=== PATIENT | male | born 1960 | race Caucasian/White ===

== ENCOUNTER 2018-09-11 20:46 | Inpatient (IN) | payer BC ==
[2018-09-11 22:03] LABS: ABSOLUTE EOSINOPHILS # (AUTO) 0.1 10^3/uL (0.0-0.6); ABSOLUTE LYMPHOCYTES (AUTO) 0.8 10^3/uL (0.5-4.7); ABSOLUTE MONOCYTES (AUTO) 0.7 10^3/uL (0.1-1.4); ABSOLUTE NEUT (AUTO) 5.5 10^3/uL (1.7-8.2); BASOPHILS % (AUTO) 0.5 % (0-2); HEMATOCRIT 49.4 % (37.9-51.0); HEMOGLOBIN 16.4 g/dL (13.5-17.0); LYMPHOCYTES % (AUTO) 11.5 % (13-45); MEAN CORPUSCULAR HEMOGLOBIN 29.2 pg (27.0-33.4); MEAN CORPUSCULAR HGB CONC 33.2 g/dL (32.0-36.0); MEAN CORPUSCULAR VOLUME 88 fl (80-97); MONOCYTES % (AUTO) 9.9 % (3-13); PLATELET COUNT 154 10^3/uL (150-450); RED BLOOD COUNT 5.61 10^6/uL (4.35-5.55); RED CELL DISTRIBUTION WIDTH 19.9 % (11.5-14.0); SEGMENTED NEUTROPHILS % (AUTO) 77.1 % (42-78); TOTAL CELLS COUNTED % (AUTO) 100 %; WHITE BLOOD COUNT 7.1 10^3/uL (4.0-10.5)
[2018-09-11 22:18] LABS: VENOUS BLOOD BASE EXCESS 3.7 mmol/L; VENOUS BLOOD HCO3 28.3 mmol/L (20-32); VENOUS BLOOD PCO2 42.4 mmHg (35-63); VENOUS BLOOD PH 7.44 (7.30-7.42)
--- NOTE | 2018-09-11 22:18 | ER Document Report ---
ED General - General Chief Complaint: Chest Pain > 30 Stated Complaint: CHEST PAIN Time Seen by Provider: 09/11/18 22:02 Notes: Patient is a 57-year-old male with CHF, hypertension that presents to the emergency department for chief complaint of shortness of breath, chest discomfort. Patient reports that over the past few days he has been having tightness across his chest, leg swelling, and increased shortness of breath and orthopnea. He states he is having some nausea and vomiting as well. And states that his abdomen is been more swollen. He states that this typically happens when he is in a flare of his CHF. He is in town visiting from [place] to visit his daughter. He is on Lasix. He states he has had to wear the LifeVest in the past, but does not currently wear one. He also reports a history of COPD, and smokes cigarettes. He describes his pain at this time as a tightness in his chest, but it seems to be easing up at this time, but he is having pain in his legs bilaterally, because he states he has restless legs as well he describes the pain as a sharp pain, that is constant towards the ankles. He denies noting fevers, chills, night sweats, dysuria, hematuria. Past Medical History: CHF, hypertension Past Surgical History: Left heart catheterization Social History: Admits to smoking cigarettes, denies alcohol or drug use. Family History: Reviewed and noncontributory for presenting illness Allergies: Reviewed, see documented allergy list. REVIEW OF SYSTEMS: Other than noted above, the 12 point review of systems was reviewed with the patient and were negative, all pertinent findings are included in the HPI. PHYSICAL EXAMINATION: Vital signs reviewed, nursing noted reviewed. GENERAL: Patient appears older than stated age, and uncomfortable on exam HEAD: Atraumatic, normocephalic. EYES: Eyes appear normal, extraocular movements intact, sclera anicteric, conjunctiva are normal. ENT: nares patent, oropharynx clear without exudates. Moist mucous membranes. NECK: Normal range of motion, supple without lymphadenopathy, positive for JVD, even with the patient sitting nearly upright LUNGS: Mild increased work of breathing, diminished lung sounds generally, and there is expiratory wheezing noted throughout all lung hernandez as well. HEART: Heart rate tachycardic, regular rhythm ABDOMEN: Soft, mild distention, nontender, normoactive bowel sounds. No rebound, guarding, or rigidity. No masses appreciated. EXTREMITIES: Mild tenderness with palpation to the lower extremities particularly around the ankles, no gross deformity or injury patterns noted, good range of motion, 1+ pitting edema bilaterally in the lower extremities to the proximal tibia NEUROLOGICAL: No focal neurological deficits. Moves all extremities spontaneously Motor and sensory grossly intact on exam. PSYCH: Normal mood, normal affect. SKIN: Warm, Dry, normal turgor, no rashes or lesions noted on exposed skin - Related Data Allergies/Adverse Reactions: Penicillins Adverse Reaction (Verified 09/11/18 22:06) Hives Past Medical History - Social History Smoking Status: Current Every Day Smoker Chew tobacco use (# tins/day): No Frequency of alcohol use: None Drug Abuse: None Family History: Reviewed & Not Pertinent Patient has suicidal ideation: No Patient has homicidal ideation: No - Past Medical History Cardiac Medical History: Reports: Hx Congestive Heart Failure, Hx Hypertension Pulmonary Medical History: Reports: Hx COPD, Hx Pneumonia - may Renal/ Medical History: Denies: Hx Peritoneal Dialysis Physical Exam - Vital signs Vitals: Resp Pulse Ox 19 88 L 09/11/18 21:21 09/11/18 21:21 Course - Re-evaluation Re-evalutation: Patient seen and examined vital signs reviewed. Laboratory data and imaging were ordered as appropriate for the patient's presenting symptoms and complaint, with consideration of any critical or life threatening conditions that may be associated with their obtained history and exam as noted above. Patient was treated with supplemental oxygen, as he was found to be hypoxic, at rest on room air, which she typically does not wear oxygen. He was started on DuoNeb breathing treatment, IV corticosteroid, and given IV Lasix. He was also started on BiPAP, as the patient was having increased work of breathing, was hypoxic, and appeared to be fluid overloaded, as well as in a COPD exacerbation. Results were reviewed when available and demonstrated chest x-ray with cardiomegaly, no signs of pneumonia, no leukocytosis, his troponin was 0.03, BNP 4300 The patient was re-evaluated and was much improved on BiPAP, stating his breathing was much easier, his heart rate was coming down as well. Evaluation was most consistent with acute exacerbation of COPD, acute exacerbation of heart failure, and mild fluid overload Results were discussed with the patient at this point after careful consideration I feel that that patient should be admitted to the hospital. This was discussed with the patient that it is in the best interest for their care to be admitted for further evaluation and management. Patient agreed with this plan of care. A call was placed to the admitted physician, Dr. Saeed who graciously accepted the patient onto their service. *Note is created using voice recognition software and may contain spelling, syntax or grammatical errors. Laboratory 09/11/18 09/11/18 09/11/18 21:35 21:35 21:35 WBC 7.1 RBC 5.61 H Hgb 16.4 Hct 49.4 MCV 88 MCH 29.2 MCHC 33.2 RDW 19.9 H Plt Count 154 Seg Neutrophils % 77.1 Lymphocytes % 11.5 L Monocytes % 9.9 Eosinophils % 1.0 Basophils % 0.5 Absolute Neutrophils 5.5 Absolute Lymphocytes 0.8 Absolute Monocytes 0.7 Absolute Eosinophils 0.1 Absolute Basophils 0.0 VBG pH VBG pCO2 VBG HCO3 VBG Base Excess Sodium 138.5 Potassium 3.8 Chloride 102 Carbon Dioxide 28 Anion Gap 9 BUN 39 H Creatinine 1.05 Est GFR ( Amer) > 60 Est GFR (Non-Af Amer) > 60 Glucose 114 H Calcium 9.3 Total Bilirubin 2.3 H Direct Bilirubin 1.0 H Neonat Total Bilirubin Not Reportable Neonat Direct Bilirubin Not Reportable Neonat Indirect Bili Not Reportable AST 63 H ALT 34 Alkaline Phosphatase 174 H Creatine Kinase 159 CK-MB (CK-2) 4.51 Troponin I 0.034 NT-Pro-B Natriuret Pep Total Protein 7.2 Albumin 3.5 09/11/18 09/11/18 21:35 21:35 WBC RBC Hgb Hct MCV MCH MCHC RDW Plt Count Seg Neutrophils % Lymphocytes % Monocytes % Eosinophils % Basophils % Absolute Neutrophils Absolute Lymphocytes Absolute Monocytes Absolute Eosinophils Absolute Basophils VBG pH 7.44 H VBG pCO2 42.4 VBG HCO3 28.3 VBG Base Excess 3.7 Sodium Potassium Chloride Carbon Dioxide Anion Gap BUN Creatinine Est GFR ( Amer) Est GFR (Non-Af Amer) Glucose Calcium Total Bilirubin Direct Bilirubin Neonat Total Bilirubin Neonat Direct Bilirubin Neonat Indirect Bili AST ALT Alkaline Phosphatase Creatine Kinase CK-MB (CK-2) Troponin I NT-Pro-B Natriuret Pep 4310 H Total Protein Albumin Chest X-Ray 09/11/18 21:41 IMPRESSION: Cardiomegaly. Scarring left midlung copyright 2011 [employer]- All Rights Reserved - Vital Signs Vital signs: Temp Pulse Resp BP Pulse Ox 97.3 F 94 18 106/57 L 94 09/12/18 01:34 09/12/18 01:34 09/12/18 01:34 09/12/18 01:34 09/12/18 01:34 - Laboratory Result Diagrams: 09/11/18 21:35 09/11/18 21:35 Laboratory results interpreted by me: 09/11/18 09/11/18 09/11/18 21:35 21:35 21:35 RBC 5.61 H RDW 19.9 H Lymphocytes % 11.5 L VBG pH 7.44 H BUN 39 H Glucose 114 H Total Bilirubin 2.3 H Direct Bilirubin 1.0 H AST 63 H Alkaline Phosphatase 174 H NT-Pro-B Natriuret Pep 09/11/18 21:35 RBC RDW Lymphocytes % VBG pH BUN Glucose Total Bilirubin Direct Bilirubin AST Alkaline Phosphatase NT-Pro-B Natriuret Pep 4310 H - EKG Interpretation by Me Additional EKG results interpreted by me: EKG demonstrates mild sinus tachycardia with a ventricular rate of 101 bpm, presence of incomplete right bundle branch block, right axis deviation, QTC prolonged at 493 ms, T wave inversion in lead III and aVF, no ST elevation, Q waves in leads V2 and V3. No prior for comparison. Critical Care Note - Critical Care Note Total time excluding time spent on procedures (mins): 40 Comments: Critical care time 40 minutes exclusive from separate billable procedures for a patient requiring complex medical decision making, and high potential for clinical deterioration. Time spent obtaining history from patient or surrogate, discussions with consultants, development of treatment plan with patient or surrogate, evaluation of patient's response to treatment, examination of patient, ordering and performing treatments and interventions, ordering and review of laboratory studies, re-evaluation of patient's condition, ordering and review of radiographic studies and review of old charts Discharge - Discharge Clinical Impression: Acute exacerbation of chronic obstructive pulmonary disease (COPD) Acute exacerbation of CHF (congestive heart failure) Qualifiers: Heart failure type: unspecified Qualified Code(s): I50.9 - Heart failure, unspecified Acute and chronic respiratory failure Qualifiers: Respiratory failure complication: hypoxia Qualified Code(s): J96.21 - Acute and chronic respiratory failure with hypoxia Condition: Stable Disposition: ADMITTED INPATIENT Admitting Provider: Darlin (Hospitalist) Unit Admitted: [facility]
--- NOTE | 2018-09-11 22:23 | RADIOLOGY REPORT (SQ) ---
EXAM DESCRIPTION: XR CHEST 1 VIEW COMPLETED DATE/TME: 09/11/2018 21:41 CLINICAL HISTORY: 57 years, Male, possible chf exacerbation COMPARISON: None. NUMBER OF VIEWS: 1 TECHNIQUE: Portable chest LIMITATIONS: None. FINDINGS: Cardiomegaly. Osteopenia. Scarring in the left midlung. No pneumothorax IMPRESSION: Cardiomegaly. Scarring left midlung copyright 2010 [employer]- All Rights Reserved
[2018-09-11 22:30] LABS: CREATINE KINASE MB 4.51 ng/mL (<4.55)
[2018-09-11] MEDS ORDERED: FUROSEMIDE INJ/PF 40 MG/4 ML SDV IV ONE (22:32)
[2018-09-11] MEDS ORDERED: IPRATROPIUM/ALBUTEROL 0.5-2.5 MG/3 ML AMPUL NEB ONE (22:33)
[2018-09-11] MEDS ORDERED: METHYLPREDNISOLONE INJ 125 MG/2 ML SDV IV ONE (22:33)
[2018-09-11] MEDS ORDERED: FENTANYL CITRATE INJ/PF 100 MCG/2 ML AMPUL IV ONE (22:39)
[2018-09-11 22:40] LABS: TROPONIN I 0.034 ng/mL
[2018-09-11 22:50] LABS: ALANINE AMINOTRANSFERASE 34 U/L (21-72); ALBUMIN 3.5 g/dL (3.5-5.0); ALKALINE PHOSPHATASE 174 U/L (38-126); ANION GAP 9 (5-19); ASPARTATE AMINO TRANSFERASE 63 U/L (17-59); BILIRUBIN,TOTAL 2.3 mg/dL (0.2-1.3); BLOOD UREA NITROGEN 39 mg/dL (7-20); CALCIUM 9.3 mg/dL (8.4-10.2); CARBON DIOXIDE 28 mmol/L (22-30); CHLORIDE 102 mmol/L (98-107); CREATINE KINASE 159 U/L (55-170); GLUCOSE 114 mg/dL (75-110); POTASSIUM 3.8 mmol/L (3.6-5.0); SODIUM 138.5 mmol/L (137-145); TOTAL PROTEIN 7.2 g/dL (6.3-8.2)
[2018-09-12] MEDS ORDERED: MAGNESIUM HYDROXIDE SUSP 30 ML UDCUP PO PRN (00:45)
[2018-09-12] MEDS ORDERED: ONDANSETRON HCL INJ/PF 4 MG/2 ML SDV IV PRN (00:45)
[2018-09-12] MEDS ORDERED: ONDANSETRON 4 MG TAB.RAPDIS PO PRN (00:45)
[2018-09-12] MEDS ORDERED: NICOTINE 21 MG/24 HR PATCH.TD24 TD PRN (00:53)
[2018-09-12] MEDS ORDERED: ACETAMINOPHEN 325 MG TABLET PO PRN (00:53)
[2018-09-12] MEDS ORDERED: HYDRALAZINE HCL INJ/PF 20 MG/1 ML SDV IV PRN (00:53)
[2018-09-12] MEDS ORDERED: MORPHINE SULFATE 10 MG/ML INJ IV PRN ×5 (00:53→01:14)
[2018-09-12] MEDS ORDERED: LEVALBUTEROL HCL NEB 1.25 MG/3 ML AMPUL NEB ONE (01:30)
[2018-09-12] MEDS ORDERED: FAMOTIDINE 20 MG TABLET PO ONE (01:30)
[2018-09-12] MEDS ORDERED: IPRATROPIUM BROMIDE 0.02% NEB 0.5 MG/2.5 ML AMPUL NEB ONE (01:30)
--- NOTE | 2018-09-12 03:36 | PDOC H&P ---
History of Present Illness Admission Date/PCP: 09/11/18 23:39 No Local PCP Patient complains of: Dyspnea History of Present Illness: LOC SYED is a 57 year old male who presented to the emergency room with a 3-day history of progressively worsening dyspnea. He admits that for 3 days he has gradually become more short of breath to the point where it had become severe resulting in his presentation to the emergency room. He additionally admits that his dyspnea has been accompanied by gradually worsening orthopnea, exertion related episodic mild to moderate tightness in his anterior chest as well as constantly present and gradually worsening swelling of his bilateral lower extremities. He also reports related symptoms of mild to moderate nausea with vomiting. He admits to numerous prior similar episodes with flareups of his congestive heart failure and/or COPD. He continues to smoke cigarettes. He further admits that he has worn a LifeVest for treatment of his CHF in the past however he has moved from [place] where this was available to [place] to live with his daughter and he no longer has access to this treatment and has not developed a relationship with a primary care physician or [place] locally. He has not identified any other aggravating or ameliorating factors for his acute exacerbations of just of heart failure. In the emergency room he was found to have a significantly elevated BNP at greater than 4300 and was noted to have significant hypoxia requiring BiPAP to obtain adequate oxygenation levels. Because of his significant congestive heart failure history and his general condition is felt he should be admitted to the hospital for further evaluation and treatment. Past Medical History Cardiac Medical History: Reports: Congestive Heart Failure, Hypertension Denies: Atrial Fibrillation, DVT, Myocardial Infarction, Pulmonary Embolism Pulmonary Medical History: Reports: Chronic Obstructive Pulmonary Disease (COPD), Pneumonia - may, Respiratory Failure Denies: Asthma EENT Medical History: Denies: Cataracts, Eyes - Does not use corrective lenses Neurological Medical History: Denies: Hemorrhagic CVA, Ischemic CVA, Seizures Endocrine Medical History: Denies: Diabetes Mellitus Type 1, Diabetes Mellitus Type 2, Hyperthyroidism, Hypothyroidism, Obesity Renal/ Medical History: Denies: Chronic Kidney Disease, Nephrolithiasis Malignancy Medical History: Reports: None GI Medical History: Denies: Cirrhosis, Hepatitis Musculoskeltal Medical History: Reports: Other - Restless leg syndrome Denies: Arthritis, Gout Skin Medical History: Denies: Eczema, Psoriasis Psychiatric Medical History: Reports: Tobacco Dependency Denies: Alcohol Dependency, Substance Abuse Traumatic Medical History: Reports: None Hematology: Denies: Anemia, Bleeding Tendencies Infectious Medical History: Reports: None Past Surgical History Past Surgical History: Reports: Cardiac Catheterization Social History Information Source: Patient Lives with: Family Smoking Status: Current Every Day Smoker Frequency of Alcohol Use: None Hx Recreational Drug Use: No Drugs: None Hx Prescription Drug Abuse: No - Advance Directive Resuscitation Status: Full Code Surrogate healthcare decision maker:: Sarita Hernandez his daughter Family History Family History: CAD, Hypertension. denies: DM, Malignancy, Thyroid Disfunction Parental Family History Reviewed: Yes Children Family History Reviewed: No Sibling(s) Family History Reviewed.: Yes Medication/Allergy Allergies/Adverse Reactions: Penicillins Adverse Reaction (Verified 09/11/18 22:06) Hives Review of Systems Constitutional: ABSENT: chills, fever(s) Eyes: ABSENT: visual disturbances, other - Eye pain Ears: ABSENT: hearing changes, other - Ear pain Nose, Mouth, and Throat: ABSENT: mouth pain, sore throat Cardiovascular: PRESENT: as per HPI, chest pain, dyspnea on exertion, edema, orthropnea. ABSENT: palpitations Respiratory: PRESENT: dyspnea. ABSENT: cough Gastrointestinal: PRESENT: nausea, vomiting. ABSENT: abdominal pain, constipation, diarrhea Genitourinary: ABSENT: dysuria, hematuria Musculoskeletal: ABSENT: back pain, joint swelling, muscle weakness Integumentary: ABSENT: pruritus, rash Neurological: ABSENT: confusion, convulsions, focal weakness, memory loss, syncope Psychiatric: ABSENT: anxiety, depression Endocrine: ABSENT: cold intolerance, heat intolerance Hematologic/Lymphatic: ABSENT: easy bleeding, easy bruising Physical Exam Vital Signs: Temp Pulse Resp BP Pulse Ox 97.6 F 99 11 L 119/108 H 95 09/11/18 21:49 09/11/18 21:49 09/12/18 00:01 09/12/18 00:01 09/12/18 00:01 Intake & Output 09/10/18 09/11/18 09/12/18 23:59 23:59 23:59 Weight 58.4 kg General appearance: PRESENT: mild distress, other - On BiPAP, slightly uncooperative with exam due to his mild respiratory distress despite being on BiPAP Head exam: PRESENT: atraumatic, normocephalic Eye exam: ABSENT: conjunctival injection, nystagmus, scleral icterus Ear exam: PRESENT: normal external ear exam. ABSENT: bleeding, drainage Mouth exam: PRESENT: dry mucosa, neck supple Neck exam: PRESENT: JVD - Mild, Bilateral @ 30 degrees. ABSENT: thyromegaly, tracheal deviation Respiratory exam: PRESENT: decreased breath sounds - Mildly decreased breath sounds throughout all hernandez with more significant decrease in breath sounds at the bilateral bases, prolonged expiratory phas - Slightly prolonged expiratory phase throughout all hernandez, rales - Bibasilar rales, symmetrical, wheezes - Expiratory wheezes throughout all hernandez, other - On BiPAP Cardiovascular exam: PRESENT: gallop - S4 gallop rhythm present, RRR. ABSENT: clicks, rubs Pulses: PRESENT: normal radial pulses, normal dorsalis pedis pul Vascular exam: PRESENT: normal capillary refill. ABSENT: pallor GI/Abdominal exam: PRESENT: normal bowel sounds, soft Rectal exam: PRESENT: deferred Extremities exam: PRESENT: +2 edema - Bilateral lower extremities pretibial surface to the knees.. ABSENT: joint swelling, tenderness Musculoskeletal exam: PRESENT: full ROM. ABSENT: deformity, dislocation Neurological exam: PRESENT: alert, awake, oriented to person, oriented to place, oriented to time, oriented to situation, CN II-XII grossly intact. ABSENT: motor sensory deficit Psychiatric exam: PRESENT: appropriate affect, normal mood Skin exam: PRESENT: dry, intact, warm. ABSENT: jaundice, rash, urticaria Results Laboratory Results: 09/11/18 21:35 09/11/18 21:35 09/11/18 09/11/18 09/11/18 21:35 21:35 21:35 WBC 7.1 RBC 5.61 H Hgb 16.4 Hct 49.4 MCV 88 MCH 29.2 MCHC 33.2 RDW 19.9 H Plt Count 154 Seg Neutrophils % 77.1 Lymphocytes % 11.5 L Monocytes % 9.9 Eosinophils % 1.0 Basophils % 0.5 Absolute Neutrophils 5.5 Absolute Lymphocytes 0.8 Absolute Monocytes 0.7 Absolute Eosinophils 0.1 Absolute Basophils 0.0 VBG pH 7.44 H VBG pCO2 42.4 VBG HCO3 28.3 VBG Base Excess 3.7 Sodium 138.5 Potassium 3.8 Chloride 102 Carbon Dioxide 28 Anion Gap 9 BUN 39 H Creatinine 1.05 Est GFR ( Amer) > 60 Est GFR (Non-Af Amer) > 60 Glucose 114 H Calcium 9.3 Total Bilirubin 2.3 H AST 63 H ALT 34 Alkaline Phosphatase 174 H Total Protein 7.2 Albumin 3.5 09/11/18 09/11/18 09/11/18 21:35 21:35 21:35 Creatine Kinase 159 CK-MB (CK-2) 4.51 Troponin I 0.034 NT-Pro-B Natriuret Pep 4310 H Impressions: Chest X-Ray 09/11/18 21:41 IMPRESSION: Cardiomegaly. Scarring left midlung copyright 2011 [id number]- All Rights Reserved Assessment and Plan - Diagnosis (1) Pulmonary edema with congestive heart failure Is this a current diagnosis for this admission?: Yes Plan: Patient's pulmonary edema will be treated with BiPAP and intravenous diuretic therapy as already initiated in the emergency room. Additionally will use morphine sulfate 2-4 mg IV every 2 hours on a sliding scale basis as needed for control of chest pain or dyspnea. Routine serial cardiac enzymes will be obtained to evaluate for possible acute myocardial injury or ischemia and a cardiology consultation will be obtained with Dr. Richards. (2) Acute exacerbation of CHF (congestive heart failure) Qualifiers: Heart failure type: unspecified Qualified Code(s): I50.9 - Heart failure, unspecified Is this a current diagnosis for this admission?: Yes Plan: Patient will be started on an appropriate regimen for treatment of his chronic congestive heart failure. An echocardiogram will be obtained to evaluate the patient's heart failure. His initial therapy will consist of diuretics as well as institution of beta blockers and an CHLOE inhibitor/ARB and evaluation of his lipids for use of a statin agent. He will be started on spironolactone at an initial dose of 12.5 mg daily. A cardiology consultation will be obtained with Dr. Richards. (3) Chronic obstructive pulmonary disease (COPD) Qualifiers: COPD type: unspecified COPD Qualified Code(s): J44.9 - Chronic obstructive pulmonary disease, unspecified Is this a current diagnosis for this admission?: Yes Plan: Patient be treated with a routine pulmonary toilet utilizing Xopenex, Atrovent and Pulmicort nebulizers. Consideration for utilization of a long-acting beta agonist as well as chronic use of inhaled corticosteroid should be considered by his daytime hospitalist at the time of discharge. (4) HTN (hypertension) Qualifiers: Hypertension type: essential hypertension Qualified Code(s): I10 - Essenti al (primary) hypertension Is this a current diagnosis for this admission?: Yes Plan: Patient's hypertension will be treated in addition to his congestive heart failure if further medication is required. His blood pressure will be observed closely throughout his hospital stay. Prevention for extremes of blood pressure will include hydralazine 20 mg IV every 4 hours as needed for blood pressure greater than 160 systolic or 100 diastolic. (5) Restless legs syndrome (RLS) Is this a current diagnosis for this admission?: Yes Plan: Patient will be continued on his usual medication for restless leg syndrome. Dosage adjustments will be made as indicated. (6) Tobacco use disorder, severe, dependence Is this a current diagnosis for this admission?: Yes Plan: Smoking cessation is advised. Smoking cessation counseling is given briefly. A nicotine replacement patch will be available to patient. - Time Time Spent with patient: 25-34 minutes Smoking Cessation Education: 3 to 10 minutes Medications reviewed and adjusted accordingly: Yes Anticipated discharge: Home - Inpatient Certification Based on my medical assessment, after consideration of the patient's comorbidities, presenting symptoms, or acuity I expect that the services needed warrant INPATIENT care.: Yes I certify that my determination is in accordance with my understanding of Medicare's requirements for reasonable and necessary INPATIENT services [42 CFR 412.3e].: Yes Medical Necessity: Significant Comorbidiites Make Outpatient Treatment Too Risky, Need Close Monitoring Due to Risk of Patient Decompensation, Need For Continuous Telemetry Monitoring, Need for Nebulizer Therapy and Monitoring of Response, Need for Pain Control, Risk of Complication if Not Cared For in Hospital
[2018-09-12 05:10] LABS: CREATINE KINASE MB 3.69 ng/mL (<4.55); TROPONIN I 0.021 ng/mL
[2018-09-12] MEDS: HEPARIN SOD (PORCINE) 5,000 UNIT/ML 1 ML SYRINGE SUBCUT SCH ×3 (05:28→21:16)
[2018-09-12] MEDS: DOCUSATE SODIUM 100 MG CAPSULE PO SCH ×2 (09:40→17:26)
[2018-09-12] MEDS: FAMOTIDINE 20 MG TABLET PO SCH ×2 (09:41→21:16)
[2018-09-12] MEDS: IPRATROPIUM BROMIDE 0.02% NEB 0.5 MG/2.5 ML AMPUL NEB SCH ×2 (09:59→15:45)
[2018-09-12] MEDS ORDERED: TORSEMIDE 20 MG TABLET PO SCH (10:00)
[2018-09-12] MEDS ORDERED: METOPROLOL SUCCINATE 25 MG TAB.SR.24H PO SCH (10:00)
[2018-09-12] MEDS ORDERED: LISINOPRIL 5 MG TABLET PO SCH (10:00)
[2018-09-12] MEDS: LEVALBUTEROL HCL NEB 1.25 MG/3 ML AMPUL NEB SCH ×2 (10:00→15:45)
[2018-09-12] MEDS: BUDESONIDE NEB 0.5 MG/2 ML AMPUL NEB SCH ×2 (10:00→20:31)
[2018-09-12] MEDS ORDERED: FUROSEMIDE INJ/PF 20 MG/2 ML SDV IV SCH (10:00)
[2018-09-12] MEDS ORDERED: SPIRONOLACTONE 25 MG TABLET PO SCH (10:00)
[2018-09-12] MEDS: LEVALBUTEROL HCL NEB 0.63 MG/3 ML AMPUL NEB PRN (10:32)
[2018-09-12 10:46] LABS: CREATINE KINASE MB 3.76 ng/mL (<4.55); TROPONIN I 0.017 ng/mL
[2018-09-12] MEDS ORDERED: FUROSEMIDE INJ/PF 20 MG/2 ML SDV IV ONE (12:00)
[2018-09-12] MEDS: FUROSEMIDE INJ/PF 20 MG/2 ML SDV IV SCH ×2 (13:46→21:12)
--- NOTE | 2018-09-12 15:06 | PDOC PROGRESS REPORT ---
Subjective Progress Note for:: 09/12/18 Subjective:: LOC SYED is a 57 year old male who presented to the emergency room with a 3-day history of progressively worsening dyspnea. He admits that for 3 days he has gradually become more short of breath to the point where it had become severe resulting in his presentation to the emergency room. He additionally admits that his dyspnea has been accompanied by gradually worsening orthopnea, exertion related episodic mild to moderate tightness in his anterior chest as well as constantly present and gradually worsening swelling of his bilateral lower extremities. He also reports related symptoms of mild to moderate nausea with vomiting. He admits to numerous prior similar episodes with flareups of his congestive heart failure and/or COPD. He continues to smoke cigarettes. He further admits that he has worn a LifeVest for treatment of his CHF in the past however he has moved from [place] where this was available to [place] to live with his daughter and he no longer has access to this treatment and has not developed a relationship with a primary care physician or pain management nurse locally. He has not identified any other aggravating or ameliorating factors for his acute exacerbations of just of heart failure. In the emergency room he was found to have a significantly elevated BNP at greater than 4300 and was noted to have significant hypoxia requiring BiPAP to obtain adequate oxygenation levels. Because of his significant congestive heart failure history and his general condition is felt he should be admitted to the hospital for further evaluation and treatment. 09/12/2018. No acute events overnight. Mild improvement of his dyspnea, still complaining of orthopnea, he denies any fever, chills, nausea, vomiting, diarrhea, constipation or any urinary symptoms. Since he moved from [place] getting that he had a 2D echo about 4 months ago and reporting an ejection fraction of about 20%. Reason For Visit: ACUTE ON CHRONIC CONGESTIVE HEART FAILURE WITH Physical Exam Vital Signs: Temp Pulse Resp BP Pulse Ox 97.6 F 83 16 97/63 L 95 09/12/18 11:56 09/12/18 11:56 09/12/18 11:56 09/12/18 11:56 09/12/18 11:56 Intake & Output 09/11/18 09/12/18 09/13/18 06:59 06:59 06:59 Intake Total 300 Output Total 250 Balance 50 Weight 59.4 kg General appearance: PRESENT: mild distress Head exam: PRESENT: atraumatic, normocephalic Respiratory exam: PRESENT: crackles, symmetrical. ABSENT: rales, rhonchi Cardiovascular exam: PRESENT: bradycardia, RRR Pulses: PRESENT: normal dorsalis pedis pul Extremities exam: PRESENT: +1 edema Musculoskeletal exam: PRESENT: ambulatory, normal inspection Neurological exam: PRESENT: alert, awake, oriented to person, oriented to place, oriented to time, oriented to situation, CN II-XII grossly intact. ABSENT: motor sensory deficit Results Laboratory Results: 09/11/18 21:35 09/11/18 21:35 09/11/18 09/11/18 09/11/18 21:35 21:35 21:35 WBC 7.1 RBC 5.61 H Hgb 16.4 Hct 49.4 MCV 88 MCH 29.2 MCHC 33.2 RDW 19.9 H Plt Count 154 Seg Neutrophils % 77.1 Lymphocytes % 11.5 L Monocytes % 9.9 Eosinophils % 1.0 Basophils % 0.5 Absolute Neutrophils 5.5 Absolute Lymphocytes 0.8 Absolute Monocytes 0.7 Absolute Eosinophils 0.1 Absolute Basophils 0.0 VBG pH 7.44 H VBG pCO2 42.4 VBG HCO3 28.3 VBG Base Excess 3.7 Sodium 138.5 Potassium 3.8 Chloride 102 Carbon Dioxide 28 Anion Gap 9 BUN 39 H Creatinine 1.05 Est GFR ( Amer) > 60 Est GFR (Non-Af Amer) > 60 Glucose 114 H Calcium 9.3 Total Bilirubin 2.3 H AST 63 H ALT 34 Alkaline Phosphatase 174 H Total Protein 7.2 Albumin 3.5 09/11/18 09/11/18 09/11/18 21:35 21:35 21:35 Creatine Kinase 159 CK-MB (CK-2) 4.51 Troponin I 0.034 NT-Pro-B Natriuret Pep 4310 H 09/12/18 09/12/18 09/12/18 04:20 04:20 09:38 Creatine Kinase 116 108 CK-MB (CK-2) 3.69 Troponin I 0.021 NT-Pro-B Natriuret Pep 09/12/18 09:58 Creatine Kinase CK-MB (CK-2) 3.76 Troponin I 0.017 NT-Pro-B Natriuret Pep Impressions: Chest X-Ray 09/11/18 21:41 IMPRESSION: Cardiomegaly. Scarring left midlung copyright 2011 [id number]- All Rights Reserved Assessment and Plan - Diagnosis (1) Pulmonary edema with congestive heart failure Is this a current diagnosis for this admission?: Yes Plan: Continue treatment for underlying CHF exacerbation, supplemental oxygen, BiPAP, duo nebs. Cardiac diet, volume restriction. (2) Acute exacerbation of CHF (congestive heart failure) Qualifiers: Heart failure type: unspecified Qualified Code(s): I50.9 - Heart failure, unspecified Is this a current diagnosis for this admission?: Yes Plan: Unspecified type in the record/2D echo. Denies any history of CAD. Mild elevation of troponins, trending down. Likely due to demand mismatch. Denies any active chest pain. BNP > 4000. Has history of hypertension. Never had a left heart cath. Reporting a 2D echo done 4 months ago with ejection fraction of about 20%. Compliant with his diet and medications. Cardiac diet, strict in and out, daily weights, volume restriction. CHLOE, beta blockers, spironolactone, Lasix guided by volume status and vitals. Adjust dosage as needed. Cardiology on board. Records have been requested. (3) Chronic obstructive pulmonary disease (COPD) Qualifiers: COPD type: unspecified COPD Qualified Code(s): J44.9 - Chronic obstructive pulmonary disease, unspecified Is this a current diagnosis for this admission?: Yes Plan: DuoNeb's, BiPAP, IV steroids, supplemental oxygen. Outpatient pulmonary follow- up. (4) HTN (hypertension) Is this a current diagnosis for this admission?: Yes Plan: Improving not optimized. CHLOE, beta-eloina, Spironolactone, IV Lasix. Hydralazine as needed. Adjust Meds as needed. Outpatient PCP follow-up. (5) Restless legs syndrome (RLS) Is this a current diagnosis for this admission?: Yes Plan: Restart home meds. (6) Tobacco use disorder, severe, dependence Is this a current diagnosis for this admission?: Yes Plan: Smoking cessation is advised. A nicotine replacement patch will be available to patient.
[2018-09-12 16:02] LABS: CREATINE KINASE MB 4.98 ng/mL (<4.55); TROPONIN I 0.015 ng/mL
--- NOTE | 2018-09-12 20:49 | EKG REPORT ---
SEVERITY:- ABNORMAL ECG - SINUS TACHYCARDIA BIATRIAL ABNORMALITIES INCOMPLETE RIGHT BUNDLE BRANCH BLOCK ANTERIOR INFARCT, AGE INDETERMINATE : Confirmed by: Mallory Richards MD 12-Sep-2018 20:49:11
--- NOTE | 2018-09-12 20:49 | EKG REPORT ---
SEVERITY:- ABNORMAL ECG - SINUS RHYTHM BIATRIAL ABNORMALITIES NONSPECIFIC INTRAVENTRICULAR CONDUCTION DELAY EXTENSIVE ANTERIOR ?AGE : Confirmed by: Mallory Richards MD 12-Sep-2018 20:48:45
[2018-09-12] MEDS: METHYLPREDNISOLONE INJ 40 MG/1 ML SDV IV SCH (21:16)
[2018-09-12] MEDS: MORPHINE SULFATE 10 MG/ML INJ IV PRN (22:52)
[2018-09-13] MEDS: IPRATROPIUM BROMIDE 0.02% NEB 0.5 MG/2.5 ML AMPUL NEB SCH ×3 (00:44→17:13)
[2018-09-13] MEDS: LEVALBUTEROL HCL NEB 1.25 MG/3 ML AMPUL NEB SCH ×3 (00:44→17:13)
[2018-09-13] MEDS: FUROSEMIDE INJ/PF 20 MG/2 ML SDV IV SCH ×2 (05:11→17:12)
[2018-09-13] MEDS: HEPARIN SOD (PORCINE) 5,000 UNIT/ML 1 ML SYRINGE SUBCUT SCH ×3 (05:12→21:20)
[2018-09-13 05:45] LABS: HEMATOCRIT 47.1 % (37.9-51.0); HEMOGLOBIN 15.4 g/dL (13.5-17.0); MEAN CORPUSCULAR HGB CONC 32.7 g/dL (32.0-36.0); MEAN CORPUSCULAR VOLUME 89 fl (80-97); PLATELET COUNT 127 10^3/uL (150-450); RED BLOOD COUNT 5.31 10^6/uL (4.35-5.55); RED CELL DISTRIBUTION WIDTH 19.9 % (11.5-14.0); WHITE BLOOD COUNT 12.6 10^3/uL (4.0-10.5)
[2018-09-13 06:08] LABS: ANION GAP 7 (5-19); BLOOD UREA NITROGEN 40 mg/dL (7-20); CALCIUM 9.1 mg/dL (8.4-10.2); CARBON DIOXIDE 27 mmol/L (22-30); CHLORIDE 102 mmol/L (98-107); CHOLESTEROL 133.75 mg/dL (0-200); GLUCOSE 131 mg/dL (75-110); POTASSIUM 4.2 mmol/L (3.6-5.0); SODIUM 136.4 mmol/L (137-145); TRIGLYCERIDES 48 mg/dL (<150)
[2018-09-13 06:19] LABS: DIRECT LDL 97 mg/dL (<100)
[2018-09-13 06:22] LABS: FREE T3 3.02 pg/mL (2.77-5.27); FREE T4 (FREE THYROXINE) 1.19 ng/dL (0.78-2.19)
[2018-09-13 06:24] LABS: ABSOLUTE LYMPHOCYTES# (MANUAL) 0.3 10^3/uL (0.5-4.7); ABSOLUTE MONOCYTES # (MANUAL) 0.1 10^3/uL (0.1-1.4); BAND NEUTROPHILS % (MANUAL) 5 % (3-5); BASOPHILS % (MANUAL) 0 % (0-2); EOSINOPHILS % (MANUAL) 0 % (0-6); LYMPHOCYTES % (MANUAL) 2 % (13-45); MONOCYTES % (MANUAL) 1 % (3-13); PLATELET COMMENT DECREASED; SEGMENTED NEUTROPHILS % (MAN) 92 % (42-78); TOTAL CELLS COUNTED 100
[2018-09-13 06:26] LABS: HYPOCHROMASIA SLIGHT; POLYCHROMASIA SLIGHT; TARGET CELLS 1+
[2018-09-13 06:36] LABS: THYROID STIMULATING HORMONE 1.24 uIU/mL (0.47-4.68)
[2018-09-13] MEDS: BUDESONIDE NEB 0.5 MG/2 ML AMPUL NEB SCH ×2 (07:47→20:26)
[2018-09-13] MEDS: LISINOPRIL 5 MG TABLET PO SCH (09:40)
[2018-09-13] MEDS: METOPROLOL SUCCINATE 25 MG TAB.SR.24H PO SCH (09:41)
[2018-09-13] MEDS: DOCUSATE SODIUM 100 MG CAPSULE PO SCH ×2 (09:42→17:13)
[2018-09-13] MEDS: FAMOTIDINE 20 MG TABLET PO SCH ×2 (09:42→21:24)
[2018-09-13] MEDS: METHYLPREDNISOLONE INJ 40 MG/1 ML SDV IV SCH ×2 (09:42→21:24)
[2018-09-13] MEDS ORDERED: TORSEMIDE 20 MG TABLET PO SCH (10:00)
[2018-09-13] MEDS ORDERED: DIGOXIN 0.25 MG TABLET PO ONE (13:11)
--- NOTE | 2018-09-13 13:40 | PDOC PROGRESS REPORT ---
Subjective Progress Note for:: 09/13/18 Subjective:: LOC SYED is a 57 year old male who presented to the emergency room with a 3-day history of progressively worsening dyspnea. He admits that for 3 days he has gradually become more short of breath to the point where it had become severe resulting in his presentation to the emergency room. He additionally admits that his dyspnea has been accompanied by gradually worsening orthopnea, exertion related episodic mild to moderate tightness in his anterior chest as well as constantly present and gradually worsening swelling of his bilateral lower extremities. He also reports related symptoms of mild to moderate nausea with vomiting. He admits to numerous prior similar episodes with flareups of his congestive heart failure and/or COPD. He continues to smoke cigarettes. He further admits that he has worn a LifeVest for treatment of his CHF in the past however he has moved from [place] where this was available to [place] to live with his daughter and he no longer has access to this treatment and has not developed a relationship with a primary care physician or pharmacy innovation assistant locally. He has not identified any other aggravating or ameliorating factors for his acute exacerbations of just of heart failure. In the emergency room he was found to have a significantly elevated BNP at greater than 4300 and was noted to have significant hypoxia requiring BiPAP to obtain adequate oxygenation levels. Because of his significant congestive heart failure history and his general condition is felt he should be admitted to the hospital for further evaluation and treatment. 09/12/2018. No acute events overnight. Mild improvement of his dyspnea, still complaining of orthopnea, he denies any fever, chills, nausea, vomiting, diarrhea, constipation or any urinary symptoms. Since he moved from [place] getting that he had a 2D echo about 4 months ago and reporting an ejection fraction of about 20%. 09/13/2017. No acute events overnight. Dyspnea and orthopnea has improved. Ambulatory, normal bowel and bladder function. He denies any fever, chills, nausea, vomiting, diarrhea, constipation or any urinary symptoms. Cardiology on board, pending medical records from [place]. Reason For Visit: ACUTE ON CHRONIC CONGESTIVE HEART FAILURE WITH Physical Exam Vital Signs: Temp Pulse Resp BP Pulse Ox 97.4 F 85 16 97/57 L 95 09/13/18 11:08 09/13/18 11:08 09/13/18 11:08 09/13/18 11:08 09/13/18 11:08 Intake & Output 09/12/18 09/13/18 09/14/18 06:59 06:59 06:59 Intake Total 300 1929 536 Output Total 250 225 Balance 50 9 311 Weight 59.4 kg 61.4 kg General appearance: PRESENT: no acute distress, well-developed, well-nourished Head exam: PRESENT: atraumatic, normocephalic Eye exam: PRESENT: conjunctiva pink, EOMI, PERRLA. ABSENT: scleral icterus Ear exam: PRESENT: normal external ear exam Mouth exam: PRESENT: moist, tongue midline Neck exam: ABSENT: carotid bruit, JVD, lymphadenopathy, thyromegaly Respiratory exam: PRESENT: clear to auscultation jody. ABSENT: rales, rhonchi, wheezes Cardiovascular exam: PRESENT: RRR. ABSENT: diastolic murmur, rubs, systolic murmur Pulses: PRESENT: normal dorsalis pedis pul Vascular exam: PRESENT: normal capillary refill GI/Abdominal exam: PRESENT: normal bowel sounds, soft. ABSENT: distended, guarding, mass, organolmegaly, rebound, tenderness Rectal exam: PRESENT: deferred Extremities exam: PRESENT: full ROM. ABSENT: calf tenderness, clubbing, pedal edema Neurological exam: PRESENT: alert, awake, oriented to person, oriented to place, oriented to time, oriented to situation, CN II-XII grossly intact. ABSENT: motor sensory deficit Psychiatric exam: PRESENT: appropriate affect, normal mood. ABSENT: homicidal ideation, suicidal ideation Skin exam: PRESENT: dry, intact, warm. ABSENT: cyanosis, rash Results Laboratory Results: 09/13/18 04:58 09/13/18 04:58 09/13/18 09/13/18 09/13/18 04:58 04:58 04:58 WBC 12.6 H RBC 5.31 Hgb 15.4 Hct 47.1 MCV 89 MCH 29.0 MCHC 32.7 RDW 19.9 H Plt Count 127 L Seg Neutrophils % Not Reportable Lymphocytes % Not Reportable Monocytes % Not Reportable Eosinophils % Not Reportable Basophils % Not Reportable Absolute Neutrophils Not Reportable Absolute Lymphocytes Not Reportable Absolute Monocytes Not Reportable Absolute Eosinophils Not Reportable Absolute Basophils Not Reportable Sodium 136.4 L Potassium 4.2 Chloride 102 Carbon Dioxide 27 Anion Gap 7 BUN 40 H Creatinine 1.09 Est GFR ( Amer) > 60 Est GFR (Non-Af Amer) > 60 Glucose 131 H Calcium 9.1 Magnesium 2.5 H Triglycerides 48 Cholesterol 133.75 LDL Cholesterol Direct 97 VLDL Cholesterol 10.0 HDL Cholesterol 35 L TSH 1.24 Free T4 1.19 Free T3 pg/mL 3.02 09/11/18 09/11/18 09/11/18 21:35 21:35 21:35 Creatine Kinase 159 CK-MB (CK-2) 4.51 Troponin I 0.034 NT-Pro-B Natriuret Pep 4310 H 09/12/18 09/12/18 09/12/18 04:20 04:20 09:38 Creatine Kinase 116 108 CK-MB (CK-2) 3.69 Troponin I 0.021 NT-Pro-B Natriuret Pep 09/12/18 09/12/18 09/12/18 09:58 15:24 15:24 Creatine Kinase 120 CK-MB (CK-2) 3.76 4.98 H Troponin I 0.017 0.015 NT-Pro-B Natriuret Pep Impressions: Chest X-Ray 09/11/18 21:41 IMPRESSION: Cardiomegaly. Scarring left midlung copyright 2010 [employer]- All Rights Reserved Assessment and Plan - Diagnosis (1) Pulmonary edema with congestive heart failure Is this a current diagnosis for this admission?: Yes Plan: Due to acute CHF. Continue treatment for underlying CHF exacerbation, supplemental oxygen, BiPAP, duo nebs. Cardiac diet, volume restriction. (2) Acute exacerbation of CHF (congestive heart failure) Qualifiers: Heart failure type: unspecified Qualified Code(s): I50.9 - Heart failure, unspecified Is this a current diagnosis for this admission?: Yes Plan: Unspecified type, pending records. 2D echo done today. Pending read. Denies any history of CAD. Mild elevation of troponins, trending down. Likely due to demand mismatch. Denies any active chest pain. BNP > 4000. Has history of hypertension. TSH, T4/T3 within normal limits. Never had a left heart cath. Reporting a 2D echo done 4 months ago with ejection fraction of about 20%. Compliant with his diet and medications. Cardiac diet, strict in and out, daily weights, volume restriction. CHLOE, beta blockers, spironolactone, Lasix guided by volume status and vitals. Adjust dosage as needed. Cardiology on board. Records have been requested. (3) Chronic obstructive pulmonary disease (COPD) Qualifiers: COPD type: unspecified COPD Qualified Code(s): J44.9 - Chronic obstructive pulmonary disease, unspecified Is this a current diagnosis for this admission?: Yes Plan: DuoNeb's, BiPAP, IV steroids, supplemental oxygen. Outpatient pulmonary follow- up. (4) HTN (hypertension) Is this a current diagnosis for this admission?: Yes Plan: Improving not optimized. CHLOE, beta-eloina, IV Lasix. Hydralazine as needed. Adjust Meds as needed. Outpatient PCP follow-up. Patient had some episodes of hypotension recorded on EMR, asymptomatic. DC Spiranolactone. Switch IV Lasix to twice daily from 3 times daily. Monitor volume status and vitals. (5) Restless legs syndrome (RLS) Is this a current diagnosis for this admission?: Yes (6) Tobacco use disorder, severe, dependence Is this a current diagnosis for this admission?: Yes
[2018-09-13] MEDS: MAG HYDROX/AL HYDROX/SIMETH SUSP 30 ML UDCUP PO PRN (17:12)
--- NOTE | 2018-09-13 18:49 | XCELERA REPORT ---
[address] [address] Transthoracic Echocardiogram Report Name: LOC SYED Age: 57 yrs Gender: Male : 1960 Patient Status: Inpatient Patient Location: [address] [place], [place] [address]A Study Date: 09/13/2018 09:48 AM Height: 65 in Weight: 128 lb BSA: 1.6 m2 Procedure: A two-dimensional transthoracic echocardiogram with color flow and Doppler was performed. Study Quality: Good. Reason For Study: CHF History: CHF. Ordering Physician: CARMEN ROMO Performed By: Angy Kim Interpretation Summary The left ventricle is moderately to severly dilated. There is normal left ventricular wall thickness. LV EF is Less than 20% Left ventricular systolic function is severely reduced. There is severe global hypokinesis of the left ventricle. There is no thrombus. There is no ventricular septal defect visualized. The right ventricle is moderately dilated. The right ventricular systolic function is mild to moderately reduced. The right atrium is mildly dilated. The left atrium is mildly dilated. The interatrial septum is intact with no evidence for an atrial septal defect. There is no Doppler evidence for an interatrial shunt There is no evidence of mitral valve prolapse. There is no vegetation seen on the mitral valve. There is no mitral valve stenosis. There is a moderate amount of mitral regurgitation The MR jet is eccentric and directed posteriorly. There is no aortic valvular vegetation. There is no aortic valve stenosis There is no LVOT obstruction. No aortic regurgitation is present. There is no tricuspid stenosis. There is a severe amount of tricuspid regurgitation There is at least upper mild pulmonary hypertension.RVSP is 44 mm of Hg , with RA mean of at least 20. There is no pulmonic valvular stenosis. There is a trace amount of pulmonic regurgitation The aortic root is normal size. The inferior vena cava appeared dilated and did not change with respiration (RAP > 20 mmHg) There is a small pericardial effusion behind the RA. There are no echocardiographic or Doppler indications for cardiac tamponade MMode/2D Measurements & Calculations RVDd: 4.9 cm LVIDd: 7.6 cm FS: 12.6 % Ao root diam: 3.1 cm IVSd: 0.61 cm LVIDs: 6.6 cm EDV(Teich): LVPWd: 1.1 cm 303.0 ml Ao root area: ESV(Teich): 7.5 cm2 223.8 ml EF(Teich): 26.2 % EDV(MOD-sp4): SV(MOD-sp4): 111.9 ml 5.0 ml ESV(MOD-sp4): 106.8 ml EF(MOD-sp4): 4.5 % Doppler Measurements & Calculations MV E max mandy: MV dec slope: Ao V2 max: AI max mandy: 63.7 cm/sec 83.4 cm/sec 265.2 cm/sec MV A max mandy: 515.9 cm/sec2 Ao max P.8 mmHgAI max P.1 mmHg 39.5 cm/sec MV dec time: AI dec slope: MV E/A: 1.6 0.12 sec 156.3 cm/sec2 AI P1/2t: 496.9 msec LV V1 max PG: PA V2 max: PI end-d mandy: TR max mandy: 1.6 mmHg 54.5 cm/sec 106.2 cm/sec 245.6 cm/sec LV V1 max: PA max P.2 mmHg TR max P.3 mmHg 63.0 cm/sec LV dP/dt: 493.7 mmHg/s Left Ventricle The left ventricle is moderately to severly dilated. There is normal left ventricular wall thickness. LV EF is Less than 20%. Left ventricular systolic function is severely reduced. There is severe global hypokinesis of the left ventricle. There is no thrombus. There is no ventricular septal defect visualized. Right Ventricle The right ventricle is moderately dilated. The right ventricular systolic function is mild to moderately reduced. Atria The right atrium is mildly dilated. The left atrium is mildly dilated. The interatrial septum is intact with no evidence for an atrial septal defect. There is no Doppler evidence for an interatrial shunt. Mitral Valve There is no evidence of mitral valve prolapse. There is no vegetation seen on the mitral valve. There is no mitral valve stenosis. There is a moderate amount of mitral regurgitation. The MR jet is eccentric and directed posteriorly. Aortic Valve There is no aortic valvular vegetation. There is no aortic valve stenosis. There is no LVOT obstruction. No aortic regurgitation is present. Tricuspid Valve There is no tricuspid stenosis. There is a severe amount of tricuspid regurgitation. There is at least upper mild pulmonary hypertension.RVSP is 44 mm of Hg , with RA mean of at least 20. Pulmonic Valve There is no pulmonic valvular stenosis. There is a trace amount of pulmonic regurgitation. Great Vessels The aortic root is normal size. The inferior vena cava appeared dilated and did not change with respiration (RAP > 20 mmHg). Effusions There is a small pericardial effusion behind the RA. There are no echocardiographic or Doppler indications for cardiac tamponade. : CARMEN ROMO > Mallory Richards
[2018-09-13] MEDS: ZOLPIDEM TARTRATE 5 MG TABLET PO PRN (21:31)
--- NOTE | 2018-09-13 22:05 | PDOC CONSULTATION ---
Consultation-Blank Consultation: CARDIOLOGY CONSULTATION by Dr. Mallory Richards on 09/13/2018. Note patient seen briefly on 09/12/2018 and his Lasix was changed to IV Lasix 20 mg p.o. every 8 hours. Formal consult done at 11 AM on 09/13/2018. REASON FOR CONSULTATION: Acute on chronic congestive heart failure in a patient with ischemic cardiomyopathy. Also patient having acute exacerbation of COPD. REQUESTING PHYSICIANS: Hospitalist Dr. Saeed and Dr. PARKER. HISTORY PHYSICAL ILLNESS: Patient is a 57-year-old male with known history of dilated cardiomyopathy, and history of chronic obstructive pulmonary disease, who continues to smoke states since the last 3 months he has been having progressively increasing decreased effort tolerance, episodes of PND orthopnea, increasing leg edema. And increasing shortness of breath. Over the past 3 days the patient was having increasing shortness of breath at rest shortness of breath with episodes of PND and orthopnea and also increased leg swelling. He denies any palpitations or near syncope or syncope. He also has been having cough which is not productive of any sputum, and also wheezing. The patient has a known history of chronic obstructive pulmonary disease, and he continues to smoke. He states that he also had generalized chest tightness with the symptoms of 3 days duration, and was associated with nausea and vomiting. The nausea and vomiting where after a fit of coughing. He states that this is the usual presentation of symptoms before he goes into heart failure. He feels slightly better since the institutions of medication here, but still has leg edema. He has no clear-cut anginal symptoms. He states in the recent past in [place] he had a cardiac catheterization, and subsequently had a repeat cardiac catheterization for possible percutaneous intervention, but was told that he did not need it. The history is very sketchy and we are awaiting records from [place]. There is no recurrence of TIA and no CVA symptoms. He denies any fever chills or rigors. On admission in the ER his NT proBNP was 4300, and also had significant hypoxia and had to be placed on BiPAP with improvement of oxygenation levels. There is no history of diabetes mellitus or thyroid disease in the family. PAST MEDICAL HISTORY: The patient has a history of dilated cardiomyopathy and at 1 time he was told that his LV ejection fraction while in the hospital in [place] was 5-10%. Subsequently he states that he had a echocardiogram done by an outpatient surgical appliance fitter in [place] and was told that his ejection fraction was 15%. He used to be on a life jacket. He states that with a life jacket was very snug fitting and made him choke and have difficulty breathing. Hence he stopped wearing it. Although he states that at times he has been shocked by the by the LifeVest. He has a history of COPD and continues to smoke. Although there is no definite history of GA he states that he had had a cardiac catheterization and was told that he need percutaneous intervention. Subsequently when he underwent a second cardiac cath a cardiac catheterization he was told that he did not need angioplasty or stent. The patient has several episodes of acute on chronic systolic heart failure both right ventricular and left ventricular with PND orthopnea shortness of breath and leg edema.. He states in the past he has a history of hypertension, but in the past several months his blood pressure has been on the lower side. He has a history of COPD and continues to smoke. He denies any symptoms of sleep apnea. There is no history of pulmonary embolism. There is no history of diabetes mellitus or thyroid disease. There is no history of alcohol abuse. There is no history of chronic kidney disease. The patient's daughter states that in 1 of the admissions in [place] many months ago he was in a wheelchair when he became unconscious. He is monitor rhythm did not show any arrhythmia, and this was attributed to a TIA. He has not had any recurrence of the symptoms. PAST SURGICAL HISTORY: He has had a history of cardiac catheterization x2. We are awaiting records. ALLERGIES: He is allergic to penicillin, which causes hives. SOCIAL HISTORY: The patient continues to smoke, and has been a longtime smoker. There is no history of EtOH abuse. FAMILY HISTORY: Is positive for history of coronary artery disease and hypertension. Is negative for diabetes mellitus. DISPOSITION: The patient is a full code. His daughter is his surrogate healthcare decision maker. REVIEW SYSTEMS: CONSTITUTIONAL denies any fever chills or rigors. Complains of generalized fatigue malaise and weakness. He also has decreased effort tolerance. HEAD: No history of headaches or head injury. EYES: No history of amblyopia diplopia. No history of amaurosis fugax. EARS: No history of hearing loss. No history of tinnitus. No history of recurrent ear infections. NOSE: No history of hayfever. No history of nosebleeds. Known nasal polyps. MOUTH: No history of altered taste sensation. No ulcers in the mouth. No bleeding from the gums. THROAT: There is no odynophagia or dysphagia. SKIN: There is no pruritus. There is no large discoloration of the skin. There is no psoriasis. NECK: Denies any neck pain or neck swelling. LUNGS: History of COPD. Recent symptoms of acute exacerbation of COPD and acute on chronic systolic heart failure. He did have wheezing, but no history of asthma. No history of sleep apnea. No history of pulmonary embolism. No history of pleuritic chest pain. No history of hemoptysis. HEART: History of cardiomyopathy. History of several episodes of acute on chronic systolic biventricular failure. This is 1 of the admissions for this. History of shocks by LifeVest in the past. But he has chosen not to evaluate due to the LifeVest being very stenotic and choking him and patient finding it difficult to breathe. He denies syncope. He does have PND orthopnea leg edema. GI: No history of GI bleed. No history of GERD. No history of fatty food intolerance. No history of altered bowel movements. No abdominal pain. No history of cirrhosis or jaundice. ENDOCRINE: No history of diabetes mellitus. No history of thyroid disease. No history of polydipsia polyuria. No history of heat or cold intolerance. RENAL: No symptoms of enlarged prostate. No symptoms a UTI. No history of hematuria pyuria or dysuria. No history of chronic kidney disease. 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 No definite CVA. No history of headaches migraines or seizures. PSYCHIATRIC: No history of anxiety or depression. No history of suicidal ideation. VASCULAR: No history of DVT. No history of calf or buttock claudication. Hematological: No history of clotting disorders. No history of bleeding diathesis. No history of blood dyscrasias. Denies anemia. PHYSICAL EXAMINATION the patient is of frail build, but well-nourished. At present in no acute distress. He is well-groomed. Selected Entries 09/13/18 11:08 Temperature 97.4 F Temperature Axillary Source Pulse Rate 85 Respiratory 16 Rate Blood Pressure 97/57 L Blood Pressure 70 Mean BP Location Right Arm BP Position Supine O2 Sat by Pulse 95 Oximetry Oxygen Delivery Room Air Method HEAD: Is atraumatic normocephalic. EYES: Pupils are equal round regular reactive to light accommodation. Extraocular movements are normal. There is no clinical pallor. There is no scleral icterus. EARS: Tympanic membranes are intact. External auditory canals are clear. NOSE: There is no inflammation nasal mucous membranes. There is no deviated nasal septum. MOUTH: Mucous membranes of the mouth are moist tongue is moist there is no ulcers there is no bleeding from the gums. THROAT: There is no redness of the oropharynx there is no exudates. SKIN: There is no skin rashes or skin lesions. There is no petec hia or ecchymosis. NECK: Is supple. There is no JVD. Carotids are equal there is no bruit. There is no goiter. There is no lymphadenopathy. There is no accessory muscle respiration in use. Trachea central. LUNGS: There is diminished air entry and prolonged expiration. There is scattered rhonchi. There are bibasilar rales of CHF also. On percussion there is hyperresonance. On palpation there is no chest wall tenderness. HEART: S1-S2 is heard. There is no S3 gallop. There is no S4 gallop. There is systolic murmur left sternal border and the apex there is murmur of significant tricuspid regurgitation and mitral regurgitation with the the MR murmur being heard in the apex with radiation to the left axilla. There is no rub. ABDOMEN: Is soft there is no hepatosplenomegaly. Bowel sounds are well heard. There is no tender areas of masses. EXTREMITIES: Femorals are slightly diminished. There is no femoral bruits. Leg pulses are diminished. There is 2- pedal edema bilaterally. There is chronic venous stasis dermatitis changes present in the skin. There is no DVT or cellulitis. There is no calf tenderness. There is no cyanosis or clubbing. Capillary refill is normal. 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 PSYCHIATRIC: The patient judgment and insight are intact her affect is normal Current Medications Generic Name Dose Route Start Last Admin Trade Name Freq PRN Reason Stop Dose Admin Acetaminophen 650 mg 09/12/18 00:53 09/13/18 21:26 Tylenol 325 Mg Tablet PO 10/12/18 00:52 650 mg Q4HP PRN Administration For headache, pain or fever Al Hydrox/Mg Hydrox/Simethicone 30 ml 04/21/19 00:45 09/13/18 17:12 Maalox Plus Susp 30 Udcup PO 10/12/18 00:44 30 ml Q6HP PRN Administration HEARTBURN Budesonide 0.5 mg 09/12/18 08:00 09/13/18 20:26 Pulmicort Neb 0.5 Mg/2 Ml Ampul NEB 10/12/18 07:59 0.5 mg RTBID TETO Administration Digoxin 0.125 mg 09/14/18 10:00 Lanoxin 0.125 Mg Tablet PO 10/14/18 09:59 DAILY TETO Docusate Sodium 100 mg 09/12/18 10:00 09/13/18 17:13 Colace 100 Mg Capsule PO 10/12/18 09:59 100 mg BID TETO Administration Famotidine 20 mg 09/12/18 10:00 09/13/18 21:24 Pepcid 20 Mg Tablet PO 10/12/18 09:59 20 mg Q12 TETO Administration Furosemide 20 mg 09/13/18 18:00 09/13/18 17:12 Lasix Inj/Pf 20 Mg/2 Ml Sdv IV 10/13/18 17:59 20 mg BID TETO Administration Heparin Sodium (Porcine) 5,000 unit 09/12/18 06:00 09/13/18 21:20 Heparin Inj 5,000 Units/Ml 1 Ml Syringe SUBCUT 10/12/18 05:59 Not Given Q8 TETO Hydralazine HCl 20 mg 09/12/18 00:53 Apresoline Inj/Pf 20 Mg/1 Ml Sdv IV 10/12/18 00:52 Q4HP PRN Give For Sbp > 160 / Dbp > 100 Ipratropium Arlee 0.5 mg 09/12/18 08:00 09/13/18 17:13 Atrovent 0.02% Neb 0.5 Mg/2.5 Ml Ampul NEB 10/12/18 07:59 0.5 mg RTQ8 TETO Administration Levalbuterol HCl 0.63 mg 09/12/18 00:54 09/12/18 10:32 Xopenex Neb 0.63 Mg/3 Ml Ampul NEB 10/12/18 00:53 0.63 mg RTQ1HP PRN Administration SHORTNESS OF BREATH Levalbuterol HCl 1.25 mg 09/12/18 08:00 09/13/18 17:13 Xopenex Neb 1.25 Mg/3 Ml Ampul NEB 10/12/18 07:59 1.25 mg RTQ8 TETO Administration Lisinopril 2.5 mg 09/13/18 10:00 09/13/18 09:40 Prinivil 5 Mg Tablet PO 10/13/18 09:59 2.5 mg DAILY TETO Administration Magnesium Hydroxide 30 ml 09/12/18 00:45 Milk Of Magnesia 30 Ml Udcup PO 10/12/18 00:44 HSP PRN FOR CONSTIPATION Methylprednisolone Sodium Succinate 40 mg 09/12/18 22:00 09/13/18 21:24 Solu-Medrol Inj/Pf 40 Mg/1 Ml Sdv IV 10/12/18 21:59 40 mg Q12 TETO Administration Metoprolol Succinate 12.5 mg 09/13/18 10:00 09/13/18 09:41 Toprol Xl 25 Mg Tab.Sr PO 10/13/18 09:59 12.5 mg DAILY TETO Administration Morphine Sulfate 2 mg 09/12/18 14:46 09/12/18 22:52 Morphine 10 Mg/Ml Inj IV 09/19/18 14:45 2 mg Q4HP PRN Administration PAIN SCALE 1-2/5 Nicotine 1 each 09/12/18 00:53 Nicoderm 21 Mg/24 Hr Transderm Patch TD 10/12/18 00:52 DAILYP PRN WITHDRAWAL SYMPTOMS Ondansetron HCl 4 mg 09/12/18 00:45 Zofran Inj/Pf 4 Mg/2 Ml Sdv IV 10/12/18 00:44 Q4HP PRN FOR NAUSEA/VOMITING Ondansetron HCl 4 mg 09/12/18 00:45 Zofran Odt 4 Mg Tablet PO 10/12/18 00:44 Q4HP PRN FOR NAUSEA/VOMITING Sodium Chloride 2.5 ml 09/12/18 06:00 09/13/18 21:24 Saline Flush 2.5 Ml Monoject Prefil Syrin IV 10/12/18 05:59 2.5 ml Q8 TETO Administration Zolpidem Tartrate 5 mg 09/12/18 00:45 09/13/18 21:31 Ambien 5 Mg Tablet PO 09/19/18 00:44 5 mg HSP PRN Administration SLEEP OR INSOMNIA Discontinued Medications Generic Name Dose Route Start Last Admin Trade Name Colten PRN Reason Stop Dose Admin Albuterol/Ipratropium 3 ml 09/11/18 22:33 09/11/18 22:52 Duoneb 3 Ml Ampul NEB 09/11/18 22:34 3 ml NOW ONE Administration Digoxin 0.25 mg 09/13/18 13:11 09/13/18 13:52 Lanoxin 0.25 Mg Tablet PO 09/13/18 13:12 0.25 mg NOW ONE Administration Famotidine 20 mg 09/12/18 01:30 09/12/18 01:34 Pepcid 20 Mg Tablet PO 09/12/18 01:31 Not Given NOW ONE Fentanyl Citrate 50 mcg 09/11/18 22:39 09/11/18 22:51 Sublimaze Inj/Pf 100 Mcg/2 Ml Ampule IV 09/11/18 22:40 50 mcg NOW ONE Administration Furosemide 40 mg 09/11/18 22:32 09/11/18 22:52 Lasix Inj/Pf 40 Mg/4 Ml Sdv IV 09/11/18 22:33 40 mg NOW ONE Administration Furosemide 20 mg 09/12/18 10:00 Lasix Inj/Pf 20 Mg/2 Ml Sdv IV 09/12/18 22:01 Q12 TETO Furosemide 20 mg 09/12/18 12:00 09/12/18 11:56 Lasix Inj/Pf 20 Mg/2 Ml Sdv IV 09/12/18 12:01 20 mg NOW ONE Administration Furosemide 20 mg 09/12/18 14:00 09/13/18 05:11 Lasix Inj/Pf 20 Mg/2 Ml Sdv IV 10/12/18 13:59 Not Given Q8 TETO Ipratropium Arlee 0.5 mg 09/12/18 01:30 09/12/18 01:38 Atrovent 0.02% Neb 0.5 Mg/2.5 Ml Ampul NEB 09/12/18 01:31 Not Given RTNOW ONE Levalbuterol HCl 1.25 mg 09/12/18 01:30 09/12/18 01:38 Xopenex Neb 1.25 Mg/3 Ml Ampul NEB 09/12/18 01:31 Not Given RTNOW ONE Lisinopril 5 mg 09/12/18 10:00 09/12/18 09:40 Prinivil 5 Mg Tablet PO 10/12/18 09:59 5 mg DAILY TETO Administration Methylprednisolone Sodium Succinate 125 mg 09/11/18 22:33 09/11/18 22:52 Solu-Medrol Inj/Pf 125 Mg/2 Ml Sdv IV 09/11/18 22:34 125 mg NOW ONE Administration Metoprolol Succinate 25 mg 09/12/18 10:00 09/12/18 09:41 Toprol Xl 25 Mg Tab.Sr PO 10/12/18 09:59 25 mg DAILY TETO Administration Morphine Sulfate 1 mg 09/12/18 00:58 Morphine 10 Mg/Ml Inj IV 09/19/18 00:57 Q1HP PRN Dyspnea Morphine Sulfate 2 mg 09/12/18 01:13 09/12/18 07:54 Morphine 10 Mg/Ml Inj IV 09/19/18 01:12 2 mg Q2HP PRN Administration PAIN SCALE 1-2/5 Morphine Sulfate 3 mg 09/12/18 01:13 09/12/18 14:24 Morphine 10 Mg/Ml Inj IV 09/19/18 01:12 3 mg Q2HP PRN Administration PAIN SCALE 3-4/5 Morphine Sulfate 4 mg 09/12/18 01:14 Morphine 10 Mg/Ml Inj IV 09/19/18 01:13 Q2HP PRN PAIN SCALE 5/5 Spironolactone 12.5 mg 09/12/18 10:00 09/12/18 09:40 Aldactone 25 Mg Tablet PO 10/12/18 09:59 12.5 mg DAILY TETO Administration Torsemide 10 mg 09/12/18 10:00 Demadex 20 Mg Tablet PO 10/12/18 09:59 DAILY TETO Torsemide 10 mg 09/13/18 10:00 Demadex 20 Mg Tablet PO 10/13/18 09:59 DAILY REPLACED BY [facility] MEDICATIONS: Albuterol Sulfate [Ventolin Hfa 8 gm Mdi (1 Mdi/ER Disp)] 1 puff IH Q6HP PRN 09/12/18 Aspirin [Ecotrin 81 mg EC Tablet] 81 mg PO DAILY 09/12/18 Furosemide [Lasix 20 mg Tablet] 20 mg PO DAILY 09/12/18 Labs- Entire Visit 09/11/18 09/11/18 09/11/18 21:35 21:35 21:35 WBC 7.1 RBC 5.61 H Hgb 16.4 Hct 49.4 MCV 88 MCH 29.2 MCHC 33.2 RDW 19.9 H Plt Count 154 Total Counted Seg Neutrophils % 77.1 Seg Neuts % (Manual) Band Neutrophils % Lymphocytes % 11.5 L Lymphocytes % (Manual) Monocytes % 9.9 Monocytes % (Manual) Eosinophils % 1.0 Eosinophils % (Manual) Basophils % 0.5 Basophils % (Manual) Absolute Neutrophils 5.5 Abs Neuts (Manual) Absolute Lymphocytes 0.8 Abs Lymphs (Manual) Absolute Monocytes 0.7 Abs Monocytes (Manual) Absolute Eosinophils 0.1 Absolute Eos (Manual) Absolute Basophils 0.0 Abs Basophils (Manual) Platelet Comment Polychromasia Hypochromasia Macrocytosis Target Cells VBG pH VBG pCO2 VBG HCO3 VBG Base Excess Sodium 138.5 Potassium 3.8 Chloride 102 Carbon Dioxide 28 Anion Gap 9 BUN 39 H Creatinine 1.05 Est GFR ( Amer) > 60 Est GFR (Non-Af Amer) > 60 Glucose 114 H Calcium 9.3 Magnesium Total Bilirubin 2.3 H Direct Bilirubin 1.0 H Neonat Total Bilirubin Not Reportable Neonat Direct Bilirubin Not Reportable Neonat Indirect Bili Not Reportable AST 63 H ALT 34 Alkaline Phosphatase 174 H Creatine Kinase 159 CK-MB (CK-2) 4.51 Troponin I 0.034 NT-Pro-B Natriuret Pep Total Protein 7.2 Albumin 3.5 Triglycerides Cholesterol LDL Cholesterol Direct VLDL Cholesterol HDL Cholesterol TSH Free T4 Free T3 pg/mL 09/11/18 09/11/18 09/12/18 21:35 21:35 04:20 WBC RBC Hgb Hct MCV MCH MCHC RDW Plt Count Total Counted Seg Neutrophils % Seg Neuts % (Manual) Band Neutrophils % Lymphocytes % Lymphocytes % (Manual) Monocytes % Monocytes % (Manual) Eosinophils % Eosinophils % (Manual) Basophils % Basophils % (Manual) Absolute Neutrophils Abs Neuts (Manual) Absolute Lymphocytes Abs Lymphs (Manual) Absolute Monocytes Abs Monocytes (Manual) Absolute Eosinophils Absolute Eos (Manual) Absolute Basophils Abs Basophils (Manual) Platelet Comment Polychromasia Hypochromasia Macrocytosis Target Cells VBG pH 7.44 H VBG pCO2 42.4 VBG HCO3 28.3 VBG Base Excess 3.7 Sodium Potassium Chloride Carbon Dioxide Anion Gap BUN Creatinine Est GFR ( Amer) Est GFR (Non-Af Amer) Glucose Calcium Magnesium Total Bilirubin Direct Bilirubin Neonat Total Bilirubin Neonat Direct Bilirubin Neonat Indirect Bili AST ALT Alkaline Phosphatase Creatine Kinase 116 CK-MB (CK-2) Troponin I NT-Pro-B Natriuret Pep 4310 H Total Protein Albumin Triglycerides Cholesterol LDL Cholesterol Direct VLDL Cholesterol HDL Cholesterol TSH Free T4 Free T3 pg/mL 09/12/18 09/12/18 09/12/18 04:20 09:38 09:58 WBC RBC Hgb Hct MCV MCH MCHC RDW Plt Count Total Counted Seg Neutrophils % Seg Neuts % (Manual) Band Neutrophils % Lymphocytes % Lymphocytes % (Manual) Monocytes % Monocytes % (Manual) Eosinophils % Eosinophils % (Manual) Basophils % Basophils % (Manual) Absolute Neutrophils Abs Neuts (Manual) Absolute Lymphocytes Abs Lymphs (Manual) Absolute Monocytes Abs Monocytes (Manual) Absolute Eosinophils Absolute Eos (Manual) Absolute Basophils Abs Basophils (Manual) Platelet Comment Polychromasia Hypochromasia Macrocytosis Target Cells VBG pH VBG pCO2 VBG HCO3 VBG Base Excess Sodium Potassium Chloride Carbon Dioxide Anion Gap BUN Creatinine Est GFR ( Amer) Est GFR (Non-Af Amer) Glucose Calcium Magnesium Total Bilirubin Direct Bilirubin Neonat Total Bilirubin Neonat Direct Bilirubin Neonat Indirect Bili AST ALT Alkaline Phosphatase Creatine Kinase 108 CK-MB (CK-2) 3.69 3.76 Troponin I 0.021 0.017 NT-Pro-B Natriuret Pep Total Protein Albumin Triglycerides Cholesterol LDL Cholesterol Direct VLDL Cholesterol HDL Cholesterol TSH Free T4 Free T3 pg/mL 09/12/18 09/12/18 09/13/18 15:24 15:24 04:58 WBC 12.6 H RBC 5.31 Hgb 15.4 Hct 47.1 MCV 89 MCH 29.0 MCHC 32.7 RDW 19.9 H Plt Count 127 L Total Counted 100 Seg Neutrophils % Not Reportable Seg Neuts % (Manual) 92 H Band Neutrophils % 5 Lymphocytes % Not Reportable Lymphocytes % (Manual) 2 L Monocytes % Not Reportable Monocytes % (Manual) 1 L Eosinophils % Not Reportable Eosinophils % (Manual) 0 Basophils % Not Reportable Basophils % (Manual) 0 Absolute Neutrophils Not Reportable Abs Neuts (Manual) 12.2 H Absolute Lymphocytes Not Reportable Abs Lymphs (Manual) 0.3 L Absolute Monocytes Not Reportable Abs Monocytes (Manual) 0.1 Absolute Eosinophils Not Reportable Absolute Eos (Manual) 0.0 Absolute Basophils Not Reportable Abs Basophils (Manual) 0.0 Platelet Comment DECREASED Polychromasia SLIGHT Hypochromasia SLIGHT Macrocytosis SLIGHT Target Cells 1+ VBG pH VBG pCO2 VBG HCO3 VBG Base Excess Sodium Potassium Chloride Carbon Dioxide Anion Gap BUN Creatinine Est GFR ( Amer) Est GFR (Non-Af Amer) Glucose Calcium Magnesium Total Bilirubin Direct Bilirubin Neonat Total Bilirubin Neonat Direct Bilirubin Neonat Indirect Bili AST ALT Alkaline Phosphatase Creatine Kinase 120 CK-MB (CK-2) 4.98 H Troponin I 0.015 NT-Pro-B Natriuret Pep Total Protein Albumin Triglycerides Cholesterol LDL Cholesterol Direct VLDL Cholesterol HDL Cholesterol TSH Free T4 Free T3 pg/mL 09/13/18 09/13/18 04:58 04:58 WBC RBC Hgb Hct MCV MCH MCHC RDW Plt Count Total Counted Seg Neutrophils % Seg Neuts % (Manual) Band Neutrophils % Lymphocytes % Lymphocytes % (Manual) Monocytes % Monocytes % (Manual) Eosinophils % Eosinophils % (Manual) Basophils % Basophils % (Manual) Absolute Neutrophils Abs Neuts (Manual) Absolute Lymphocytes Abs Lymphs (Manual) Absolute Monocytes Abs Monocytes (Manual) Absolute Eosinophils Absolute Eos (Manual) Absolute Basophils Abs Basophils (Manual) Platelet Comment Polychromasia Hypochromasia Macrocytosis Target Cells VBG pH VBG pCO2 VBG HCO3 VBG Base Excess Sodium 136.4 L Potassium 4.2 Chloride 102 Carbon Dioxide 27 Anion Gap 7 BUN 40 H Creatinine 1.09 Est GFR ( Amer) > 60 Est GFR (Non-Af Amer) > 60 Glucose 131 H Calcium 9.1 Magnesium 2.5 H Total Bilirubin Direct Bilirubin Neonat Total Bilirubin Neonat Direct Bilirubin Neonat Indirect Bili AST ALT Alkaline Phosphatase Creatine Kinase CK-MB (CK-2) Troponin I NT-Pro-B Natriuret Pep Total Protein Albumin Triglycerides 48 Cholesterol 133.75 LDL Cholesterol Direct 97 VLDL Cholesterol 10.0 HDL Cholesterol 35 L TSH 1.24 Free T4 1.19 Free T3 pg/mL 3.02 Chest X-Ray 09/11/18 21:41 IMPRESSION: Cardiomegaly. Scarring left midlung ECHOCARDIOGRAM: The left ventricle is moderately to severly dilated. There is normal left ventricular wall thickness. LV EF is Less than 20% Left ventricular systolic function is severely reduced. There is severe global hypokinesis of the left ventricle. There is no thrombus. There is no ventricular septal defect visualized. The right ventricle is moderately dilated. The right ventricular systolic function is mild to moderately reduced. The right atrium is mildly dilated. The left atrium is mildly dilated. The interatrial septum is intact with no evidence for an atrial septal defect. There is no Doppler evidence for an interatrial shunt There is no evidence of mitral valve prolapse. There is no vegetation seen on the mitral valve. There is no mitral valve stenosis. There is a moderate amount of mitral regurgitation The MR jet is eccentric and directed posteriorly. There is no aortic valvular vegetation. There is no aortic valve stenosis There is no LVOT obstruction. No aortic regurgitation is present. There is no tricuspid stenosis. There is a severe amount of tricuspid regurgitation There is at least upper mild pulmonary hypertension.RVSP is 44 mm of Hg , with RA mean of at least 20. There is no pulmonic valvular stenosis. There is a trace amount of pulmonic regurgitation The aortic root is normal size. The inferior vena cava appeared dilated and did not change with respiration (RAP > 20 mmHg) There is a small pericardial effusion behind the RA. There are no echocardiographic or Doppler indications for cardiac tamponade EKG sinus tachycardia. Biatrial abnormalities. Incomplete right bundle branch block pattern. Possible old anterior GA. The patient's sepsis subsequent EKG shows sinus rhythm with biatrial abnormalities extensive anterior infarct nonspecific IVCD. IMPRESSION/RECOMMENDATION: 1. 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 Unfortunately the patient's blood pressure is on the lower side. He may require midodrine later on. We will see if with the afterload reduction his blood pressure does come up so that doses can be increased. Would change the patient's Lasix to 20 mg IV push every 8 hours[address] aspirin[address] Will place the patient on digoxin 0.25 mg p.o. x1 now and 0.125 mg p.o. daily. 2. Acute exacerbation of COPD: Improving. Continue respiratory treatments. Would recommend using Xopenex instead of albuterol. Continue supplemental oxygen and BiPAP as needed. The patient states that the BiPAP makes him feel better, and he wants to have a BiPAP at home. Hence will talk to the hospitalist and get a pulmonary consult to see if this is feasible. 3. 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 But will wait for the patient's records. 4. Tobacco abuse disorder: Tobacco cessation counseling given. Ill effects of tobacco discussed with the patient in detail. 5. History of shocks per LifeVest. Would watch the patient's rhythm closely. The patient does not want to wear a LifeVest. If the patient's echo was done more than 3 months ago and did show a reduced ejection fraction of 35% or below, and then would transfer the patient for an AICD, since the patient's at a high risk for sudden . 6. Dyslipidemia with low HDL levels, and a very good LDL and triglyceride levels. Unfortunately I believe the statins will get history of lower. Hence would target increasing the patient's exercise and diet to see if the HDL will come up. 7. Asymptomatic relative hypotension: If this continues would recommend adding midodrine to bring the blood pressure up, so that his anti-cardiomyopathy gold standard medications can be given in reasonable/therapeutic doses. 8. Severe tricuspid regurgitation, but only mild pulmonary hypertension. 9. Moderate mitral regurgitation. This MR TR is due to annular dilatation of the valves due to dilatation of the left ventricle in the right ventricle. Medications reviewed. New medications added. Medical decision making in view of the above is of high complexity. 60 minutes spent on this patient more than 50% of time spent in direct patient care. Management plan discussed with the attending physician Dr. PARKER., The hospitalist. Will follow. Echo findings discussed with the patient and patient's daughter. Also future plans with possible AICD placement also discussed with them. Will follow
[2018-09-14] MEDS: LEVALBUTEROL HCL NEB 1.25 MG/3 ML AMPUL NEB SCH ×4 (00:49→23:51)
[2018-09-14] MEDS: IPRATROPIUM BROMIDE 0.02% NEB 0.5 MG/2.5 ML AMPUL NEB SCH ×4 (00:49→23:51)
[2018-09-14 05:07] LABS: HEMATOCRIT 46.9 % (37.9-51.0); HEMOGLOBIN 15.4 g/dL (13.5-17.0); MEAN CORPUSCULAR HGB CONC 32.9 g/dL (32.0-36.0); MEAN CORPUSCULAR VOLUME 88 fl (80-97); PLATELET COUNT 136 10^3/uL (150-450); RED BLOOD COUNT 5.32 10^6/uL (4.35-5.55); RED CELL DISTRIBUTION WIDTH 19.7 % (11.5-14.0); WHITE BLOOD COUNT 13.6 10^3/uL (4.0-10.5)
[2018-09-14] MEDS: HEPARIN SOD (PORCINE) 5,000 UNIT/ML 1 ML SYRINGE SUBCUT SCH ×3 (05:08→21:17)
[2018-09-14 05:32] LABS: ABSOLUTE LYMPHOCYTES# (MANUAL) 0.8 10^3/uL (0.5-4.7); ANISOCYTOSIS 2+; BASOPHILS % (MANUAL) 0 % (0-2); EOSINOPHILS % (MANUAL) 0 % (0-6); LYMPHOCYTES % (MANUAL) 6 % (13-45); MONOCYTES % (MANUAL) 0 % (3-13); PLATELET COMMENT DECREASED; SEGMENTED NEUTROPHILS % (MAN) 94 % (42-78); TOTAL CELLS COUNTED 100; TOXIC GRANULATION SLIGHT
[2018-09-14 05:39] LABS: ALANINE AMINOTRANSFERASE 36 U/L (21-72); ALBUMIN 3.3 g/dL (3.5-5.0); ALKALINE PHOSPHATASE 152 U/L (38-126); ANION GAP 7 (5-19); ASPARTATE AMINO TRANSFERASE 46 U/L (17-59); BILIRUBIN,DIRECT 0.9 mg/dL (0.0-0.4); BILIRUBIN,TOTAL 1.7 mg/dL (0.2-1.3); BLOOD UREA NITROGEN 39 mg/dL (7-20); CALCIUM 9.3 mg/dL (8.4-10.2); CARBON DIOXIDE 29 mmol/L (22-30); CHLORIDE 102 mmol/L (98-107); GLUCOSE 157 mg/dL (75-110); POTASSIUM 4.3 mmol/L (3.6-5.0); SODIUM 138.1 mmol/L (137-145); TOTAL PROTEIN 6.4 g/dL (6.3-8.2)
[2018-09-14] MEDS: BUDESONIDE NEB 0.5 MG/2 ML AMPUL NEB SCH ×2 (07:30→20:20)
[2018-09-14] MEDS: FUROSEMIDE INJ/PF 20 MG/2 ML SDV IV SCH ×3 (10:00→21:16)
[2018-09-14] MEDS: DIGOXIN 0.125 MG TABLET PO SCH (11:14)
[2018-09-14] MEDS: METOPROLOL SUCCINATE 25 MG TAB.SR.24H PO SCH (11:14)
[2018-09-14] MEDS: LISINOPRIL 5 MG TABLET PO SCH (11:15)
[2018-09-14] MEDS: DOCUSATE SODIUM 100 MG CAPSULE PO SCH ×2 (11:15→17:20)
[2018-09-14] MEDS: FAMOTIDINE 20 MG TABLET PO SCH ×2 (11:15→21:17)
[2018-09-14] MEDS: METHYLPREDNISOLONE INJ 40 MG/1 ML SDV IV SCH ×2 (11:16→21:17)
[2018-09-14] MEDS: LEVALBUTEROL HCL NEB 0.63 MG/3 ML AMPUL NEB PRN (14:58)
--- NOTE | 2018-09-14 16:24 | PDOC PROGRESS REPORT ---
Subjective Progress Note for:: 09/14/18 Subjective:: LOC SYED is a 57 year old male who presented to the emergency room with a 3-day history of progressively worsening dyspnea. He admits that for 3 days he has gradually become more short of breath to the point where it had become severe resulting in his presentation to the emergency room. He additionally admits that his dyspnea has been accompanied by gradually worsening orthopnea, exertion related episodic mild to moderate tightness in his anterior chest as well as constantly present and gradually worsening swelling of his bilateral lower extremities. He also reports related symptoms of mild to moderate nausea with vomiting. He admits to numerous prior similar episodes with flareups of his congestive heart failure and/or COPD. He continues to smoke cigarettes. 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 He has not identified any other aggravating or ameliorating factors for his acute exacerbations of just of heart failure. In the emergency room he was found to have a significantly elevated BNP at greater than 4300 and was noted to have significant hypoxia requiring BiPAP to obtain adequate oxygenation levels. Because of his significant congestive heart failure history and his general condition is felt he should be admitted to the hospital for further evaluation and treatment. 09/12/2018. No acute events overnight. Mild improvement of his dyspnea, still complaining of orthopnea, he denies any fever, chills, nausea, vomiting, diarrhea, constipation or any urinary symptoms. Since he moved from [place] getting that he had a 2D echo about 4 months ago and reporting an ejection fraction of about 20%. 09/13/2018. No acute events overnight. Dyspnea and orthopnea has improved. Ambulatory, normal bowel and bladder function. He denies any fever, chills, nausea, vomiting, diarrhea, constipation or any urinary symptoms. Cardiology on board, pending medical records from [place]. 09/14/2018. Patient is ambulatory, dyspnea and orthopnea has improved. Normal bowel and bladder function. He denies any fever, chills, nausea, vomiting, diarrhea, constipation or any urinary symptoms. Cardiology on board, pending medical records from [place]. Reason For Visit: ACUTE ON CHRONIC CONGESTIVE HEART FAILURE WITH Physical Exam Vital Signs: Temp Pulse Resp BP Pulse Ox 97.4 F 97 16 141/88 H 96 09/14/18 12:00 09/14/18 15:57 09/14/18 15:57 09/14/18 12:00 09/14/18 15:57 Intake & Output 09/13/18 09/14/18 09/15/18 06:59 06:59 06:59 Intake Total 192 1331 337 Output Total 1200 150 Balance 1929 131 187 Weight 61.4 kg 61 kg General appearance: PRESENT: no acute distress, well-developed, well-nourished Head exam: PRESENT: atraumatic, normocephalic Eye exam: PRESENT: conjunctiva pink, EOMI, PERRLA. ABSENT: scleral icterus Ear exam: PRESENT: normal external ear exam Mouth exam: PRESENT: moist, tongue midline Neck exam: ABSENT: carotid bruit, JVD, lymphadenopathy, thyromegaly Respiratory exam: PRESENT: crackles. ABSENT: rales, rhonchi, wheezes Cardiovascular exam: PRESENT: RRR. ABSENT: diastolic murmur, rubs, systolic murmur Pulses: PRESENT: normal dorsalis pedis pul Vascular exam: PRESENT: normal capillary refill GI/Abdominal exam: PRESENT: normal bowel sounds, soft. ABSENT: distended, guarding, mass, organolmegaly, rebound, tenderness Rectal exam: PRESENT: deferred Extremities exam: PRESENT: full ROM, +1 edema. ABSENT: calf tenderness, clubbing, pedal edema Neurological exam: PRESENT: alert, awake, oriented to person, oriented to place, oriented to time, oriented to situation, CN II-XII grossly intact. ABSENT: motor sensory deficit Psychiatric exam: PRESENT: appropriate affect, normal mood. ABSENT: homicidal ideation, suicidal ideation Skin exam: PRESENT: dry, intact, warm. ABSENT: cyanosis, rash Results Laboratory Results: 09/14/18 04:31 09/14/18 04:31 09/14/18 09/14/18 04:31 04:31 WBC 13.6 H RBC 5.32 Hgb 15.4 Hct 46.9 MCV 88 MCH 29.0 MCHC 32.9 RDW 19.7 H Plt Count 136 L Seg Neutrophils % Not Reportable Lymphocytes % Not Reportable Monocytes % Not Reportable Eosinophils % Not Reportable Basophils % Not Reportable Absolute Neutrophils Not Reportable Absolute Lymphocytes Not Reportable Absolute Monocytes Not Reportable Absolute Eosinophils Not Reportable Absolute Basophils Not Reportable Sodium 138.1 Potassium 4.3 Chloride 102 Carbon Dioxide 29 Anion Gap 7 BUN 39 H Creatinine 0.99 Est GFR ( Amer) > 60 Est GFR (Non-Af Amer) > 60 Glucose 157 H Calcium 9.3 Magnesium 2.8 H Total Bilirubin 1.7 H AST 46 ALT 36 Alkaline Phosphatase 152 H Total Protein 6.4 Albumin 3.3 L 09/11/18 09/11/18 09/11/18 21:35 21:35 21:35 Creatine Kinase 159 CK-MB (CK-2) 4.51 Troponin I 0.034 NT-Pro-B Natriuret Pep 4310 H 09/12/18 09/12/18 09/12/18 04:20 04:20 09:38 Creatine Kinase 116 108 CK-MB (CK-2) 3.69 Troponin I 0.021 NT-Pro-B Natriuret Pep 09/12/18 09/12/18 09/12/18 09:58 15:24 15:24 Creatine Kinase 120 CK-MB (CK-2) 3.76 4.98 H Troponin I 0.017 0.015 NT-Pro-B Natriuret Pep Impressions: Chest X-Ray 09/11/18 21:41 IMPRESSION: Cardiomegaly. Scarring left midlung copyright 2011 [employer]- All Rights Reserved Assessment and Plan - Diagnosis (1) Pulmonary edema with congestive heart failure Is this a current diagnosis for this admission?: Yes Plan: Due to acute CHF. Continue treatment for underlying CHF exacerbation, supplemental oxygen, BiPAP, duo nebs. Cardiac diet, volume restriction. (2) Acute exacerbation of CHF (congestive heart failure) Qualifiers: Heart failure type: unspecified Qualified Code(s): I50.9 - Heart failure, unspecified Is this a current diagnosis for this admission?: Yes Plan: Unspecified type, pending records. 2D echo done today. Pending read. Denies any history of CAD. Mild elevation of troponins, trending down. Likely due to demand mismatch. Denies any active chest pain. BNP > 4000. Has history of hypertension. TSH, T4/T3 within normal limits. Never had a left heart cath. Reporting a 2D echo done 4 months ago with ejection fraction of about 20%. Compliant with his diet and medications. Cardiac diet, strict in and out, daily weights, volume restriction. CHLOE, beta blockers, spironolactone, Lasix guided by volume status and vitals. Adjust dosage as needed. Cardiology on board. Records have been requested. (3) Chronic obstructive pulmonary disease (COPD) Qualifiers: COPD type: unspecified COPD Qualified Code(s): J44.9 - Chronic obstructive pulmonary disease, unspecified Is this a current diagnosis for this admission?: Yes Plan: DuoNeb's, BiPAP, IV steroids, supplemental oxygen. Outpatient pulmonary follow- up. (4) HTN (hypertension) Is this a current diagnosis for this admission?: Yes Plan: Improving not optimized. CHLOE, beta-eloina, IV Lasix. Hydralazine as needed. Adjust Meds as needed. Outpatient PCP follow-up. Patient had some episodes of hypotension recorded on EMR, asymptomatic. DC Spiranolactone. Continue IV lasix TID. Monitor volume status and vitals. (5) Restless legs syndrome (RLS) Is this a current diagnosis for this admission?: Yes Plan: Restart home meds. (6) Tobacco use disorder, severe, dependence Is this a current diagnosis for this admission?: Yes Plan: Smoking cessation is advised. A nicotine replacement patch will be available to patient.
[2018-09-14] MEDS: MORPHINE SULFATE 10 MG/ML INJ IV PRN ×2 (18:33→23:46)
--- NOTE | 2018-09-14 18:47 | RADIOLOGY REPORT (SQ) ---
EXAM DESCRIPTION: U/S ABDOMEN LTD W/DOPPLER COMPLETED DATE/TIME: 09/14/2018 6:16 pm REASON FOR STUDY: Elevated LFTs COMPARISON: None. TECHNIQUE: Dynamic and static grayscale images acquired of the abdomen and recorded on PACS. Additio nal selected color Doppler and spectral images recorded. LIMITATIONS: None. FINDINGS: PANCREAS: Midline pancreas in LIVER: Liver is echogenic, from diffuse hepatocellular disease. No gross focal masses. LIVER VASCULATURE: Normal directional flow of the main portal vein and hepatic veins. GALLBLADDER: Contracted, not well seen. ULTRASOUND-DETECTED WILLOUGHBY'S SIGN: Negative. INTRAHEPATIC DUCTS AND COMMON DUCT: CBD and intrahepatic ducts normal caliber. No filling defects. INFERIOR VENA CAVA: Normal flow. AORTA: No aneurysm. RIGHT KIDNEY: Normal size. Normal echogenicity. No solid or suspicious masses. No hydronephrosis. No calcifications. PERITONEAL AND RIGHT PLEURAL SPACE: Trace ascites in the right upper quadrant OTHER: No other significant findings. IMPRESSION: Echogenic liver from diffuse hepatocellular disease. Suspect cirrhosis. Small amount of right upper quadrant free fluid TECHNICAL DOCUMENTATION: JOB ID: [id number]- All Rights Reserved Reading location - IP/workstation name: [email or web address]
--- NOTE | 2018-09-14 23:21 | Progress Note ---
Provider Note Provider Note: CARDIOLOGY PROGRESS NOTE by Dr.Lakshmi Richards on 09/14/2018. SUBJECTIVE: The patient states that shortness of breath is much improved. He has a cough and is producing very scanty sputum which is brown in color. He denies any chest pain or discomfort. Some periods of orthopnea but no PND. His leg edema he states is not improving a lot. But his Lasix dose has been increased today. There is no arrhythmias seen on the monitor. There is no TIA or CVA symptoms. PHYSICAL EXAMINATION: The patient is well-built and well-nourished. He is slightly anxious but in no acute distress. He is well-groomed. Selected Entries 09/14/18 12:00 Temperature 97.4 F Temperature Axillary Source Pulse Rate 97 Respiratory 16 Rate Blood Pressure 141/88 H Blood Pressure 105 Mean BP Location Left Arm BP Position Supine O2 Sat by Pulse 100 Oximetry Oxygen Delivery Room Air Method HEAD: Is atraumatic normocephalic. EYES: Pupils are equal round regular reactive to light accommodation. Extraocular movements are normal. There is no clinical pallor. There is no scleral icterus. EARS: Tympanic membranes are intact. External auditory canals are clear. NOSE: There is no inflammation nasal mucous membranes. There is no deviated nasal septum. MOUTH: Mucous membranes of the mouth are moist tongue is moist there is no ulcers there is no bleeding from the gums. THROAT: There is no redness of the oropharynx there is no exudates. SKIN: There is no skin rashes or skin lesions. There is no petechia or ecchymosis. NECK: Is supple. There is no JVD. Carotids are equal there is no bruit. There is no goiter. There is no lymphadenopathy. There is no accessory muscle respiration in use. Trachea central. LUNGS: There is diminished air entry and prolonged expiration. There is scattered rhonchi. There are bibasilar rales of CHF also. On percussion there is hyperresonance. On palpation there is no chest wall tenderness. HEART: S1-S2 is heard. There is no S3 gallop. There is no S4 gallop. There is systolic murmur left sternal border and the apex there is murmur of significant tricuspid regurgitation and mitral regurgitation with the the MR murmur being heard in the apex with radiation to the left axilla. There is no rub. ABDOMEN: Is soft there is no hepatosplenomegaly. Bowel sounds are well heard. There is no tender areas of masses. EXTREMITIES: Femorals are slightly diminished. There is no femoral bruits. Leg pulses are diminished. There is 2- pedal edema bilaterally. There is chronic venous stasis dermatitis changes present in the skin. There is no DVT or cellulitis. There is no calf tenderness. There is no cyanosis or clubbing. Capillary refill is normal. 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 PSYCHIATRIC: The patient judgment and insight are intact her affect is normal 09/14/18 09/14/18 04:31 04:31 WBC 13.6 H RBC 5.32 Hgb 15.4 Hct 46.9 MCV 88 MCH 29.0 MCHC 32.9 RDW 19.7 H Plt Count 136 L Total Counted 100 Seg Neutrophils % Not Reportable Seg Neuts % (Manual) 94 H Sodium 138.1 Potassium 4.3 Chloride 102 Carbon Dioxide 29 Anion Gap 7 BUN 39 H Creatinine 0.99 Est GFR (Non-Af Amer) > 60 Glucose 157 H Calcium 9.3 Magnesium 2.8 H Total Bilirubin 1.7 H Direct Bilirubin 0.9 H Neonat Total Bilirubin Not Reportable Neonat Direct Bilirubin Not Reportable Neonat Indirect Bili Not Reportable AST 46 ALT 36 Alkaline Phosphatase 152 H Total Protein 6.4 Albumin 3.3 L IMPRESSION/RECOMMENDATION: 1. 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 Unfortunately the patient's blood pressure is on the lower side. He may require midodrine later on. We will see if with the afterload reduction his blood pressure does come up so that doses can be increased. Would change the patient's Lasix to 20 mg IV push every 8 hours[address] aspirin. Will place the patient on digoxin 0.25 mg p.o. x1 now and 0.125 mg p.o. daily. 2. Acute exacerbation of COPD: Improving. Continue respiratory treatments. Would recommend using Xopenex instead of albuterol. Continue supplemental oxygen and BiPAP as needed. The patient states that the BiPAP makes him feel better, and he wants to have a BiPAP at home. Hence will talk to the hospitalist and get a pulmonary consult to see if this is feasible. Recommend starting an antibiotic 3. 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 But will wait for the patient's records. 4. Tobacco abuse disorder: Tobacco cessation counseling given. Ill effects of tobacco discussed with the patient in detail. 5. History of shocks per LifeVest. Would watch the patient's rhythm closely. The patient does not want to wear a LifeVest. If the patient's echo was done more than 3 months ago and did show a reduced ejection fraction of 35% or below, and then would transfer the patient for an AICD, since the patient's at a high risk for sudden . 6. History of coronary artery disease. Patient denies any past history of NM. He states he was taken to cardiac catheterization and subsequently after the first catheter another catheterization. The second catheterization he stated that this that he did not need angioplasty. Hence patient most likely has no significant coronary artery disease. Await records. 7. Asymptomatic relative hypotension: If this continues would recommend adding midodrine to bring the blood pressure up, so that his anti-cardiomyopathy gold standard medications can be given in reasonable/therapeutic doses. 8. Severe tricuspid regurgitation, but only mild pulmonary hypertension. 9. Moderate mitral regurgitation. This MR TR is due to annular dilatation of the valves due to dilatation of the left ventricle in the right ventricle. 10.Dyslipidemia with low HDL levels, and a very good LDL and triglyceride levels. Unfortunately I believe the statins will get history of lower. Hence would target increasing the patient's exercise and diet to see if the HDL will come up. Medications reviewed. Medications adjusted. Medical decision making in view of the above is of high complexity. 60 minutes spent on this patient more than 50% of time spent in direct patient care. Management plan discussed with the attending physician Dr. PARKER., The hospitalist. Will follow.
[2018-09-14] MEDS ORDERED: BUMETANIDE INJ/PF 1 MG/4 ML SDV IV ONE (23:59)
[2018-09-14] MEDS ORDERED: LISINOPRIL 5 MG TABLET PO ONE (23:59)
[2018-09-15] MEDS ORDERED: BUMETANIDE INJ/PF 1 MG/4 ML SDV ONE ×2 (00:35→00:40)
[2018-09-15] MEDS: HEPARIN SOD (PORCINE) 5,000 UNIT/ML 1 ML SYRINGE SUBCUT SCH ×3 (05:02→21:13)
[2018-09-15 06:52] LABS: HEMATOCRIT 47.2 % (37.9-51.0); HEMOGLOBIN 15.6 g/dL (13.5-17.0); MEAN CORPUSCULAR VOLUME 88 fl (80-97); PLATELET COUNT 130 10^3/uL (150-450); RED BLOOD COUNT 5.38 10^6/uL (4.35-5.55); RED CELL DISTRIBUTION WIDTH 20.1 % (11.5-14.0); WHITE BLOOD COUNT 10.6 10^3/uL (4.0-10.5)
[2018-09-15 06:55] LABS: INTERNATIONAL RATION (INR) 1.18; PROTHROMBIN TIME 15.6 SEC (11.4-15.4)
[2018-09-15 07:16] LABS: ALANINE AMINOTRANSFERASE 40 U/L (21-72); ALBUMIN 3.1 g/dL (3.5-5.0); ALKALINE PHOSPHATASE 133 U/L (38-126); ANION GAP 7 (5-19); ASPARTATE AMINO TRANSFERASE 45 U/L (17-59); BILIRUBIN,DIRECT 0.9 mg/dL (0.0-0.4); BILIRUBIN,TOTAL 2.1 mg/dL (0.2-1.3); BLOOD UREA NITROGEN 37 mg/dL (7-20); CALCIUM 8.6 mg/dL (8.4-10.2); CARBON DIOXIDE 31 mmol/L (22-30); CHLORIDE 100 mmol/L (98-107); DIGOXIN 0.61 ng/mL (0.8-2.0); GLUCOSE 182 mg/dL (75-110); POTASSIUM 4.1 mmol/L (3.6-5.0); SODIUM 138.3 mmol/L (137-145); TOTAL PROTEIN 6.2 g/dL (6.3-8.2)
[2018-09-15 07:39] LABS: ABSOLUTE LYMPHOCYTES# (MANUAL) 0.4 10^3/uL (0.5-4.7); BASOPHILS % (MANUAL) 0 % (0-2); EOSINOPHILS % (MANUAL) 0 % (0-6); LYMPHOCYTES % (MANUAL) 2 % (13-45); MONOCYTES % (MANUAL) 0 % (3-13); PLATELET COMMENT DECREASED; SEGMENTED NEUTROPHILS % (MAN) 96 % (42-78); STOMATOCYTES 1+; TARGET CELLS 1+; TOTAL CELLS COUNTED 100
[2018-09-15] MEDS: LEVALBUTEROL HCL NEB 1.25 MG/3 ML AMPUL NEB SCH ×2 (08:32→17:03)
[2018-09-15] MEDS: BUDESONIDE NEB 0.5 MG/2 ML AMPUL NEB SCH ×2 (08:32→20:51)
[2018-09-15] MEDS: IPRATROPIUM BROMIDE 0.02% NEB 0.5 MG/2.5 ML AMPUL NEB SCH ×2 (08:32→17:03)
[2018-09-15] MEDS: MORPHINE SULFATE 10 MG/ML INJ IV PRN (08:49)
[2018-09-15] MEDS: MAG HYDROX/AL HYDROX/SIMETH SUSP 30 ML UDCUP PO PRN (08:54)
[2018-09-15] MEDS: METHYLPREDNISOLONE INJ 40 MG/1 ML SDV IV SCH ×2 (09:21→21:12)
[2018-09-15] MEDS: LISINOPRIL 5 MG TABLET PO SCH ×2 (09:22→21:13)
[2018-09-15] MEDS: METOPROLOL SUCCINATE 25 MG TAB.SR.24H PO SCH ×2 (09:23→21:13)
[2018-09-15] MEDS: DIGOXIN 0.125 MG TABLET PO SCH (09:23)
[2018-09-15] MEDS: BUMETANIDE INJ/PF 1 MG/4 ML SDV IV SCH ×2 (09:24→21:12)
[2018-09-15] MEDS: DOCUSATE SODIUM 100 MG CAPSULE PO SCH ×2 (09:25→18:07)
[2018-09-15] MEDS: FAMOTIDINE 20 MG TABLET PO SCH ×2 (09:25→21:13)
[2018-09-15] MEDS ORDERED: GUAIFENESIN SYRP 200 MG/10 ML UDC PO PRN (11:24)
[2018-09-15] MEDS ORDERED: BENZOCAINE/MENTHOL SORE THROAT LOZENGE BUCCAL PRN (11:24)
--- NOTE | 2018-09-15 15:57 | PDOC PROGRESS REPORT ---
Subjective Progress Note for:: 09/15/18 Subjective:: LOC SYED is a 57 year old male who presented to the emergency room with a 3-day history of progressively worsening dyspnea. He admits that for 3 days he has gradually become more short of breath to the point where it had become severe resulting in his presentation to the emergency room. He additionally admits that his dyspnea has been accompanied by gradually worsening orthopnea, exertion related episodic mild to moderate tightness in his anterior chest as well as constantly present and gradually worsening swelling of his bilateral lower extremities. He also reports related symptoms of mild to moderate nausea with vomiting. He admits to numerous prior similar episodes with flareups of his congestive heart failure and/or COPD. He continues to smoke cigarettes. 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 He has not identified any other aggravating or ameliorating factors for his acute exacerbations of just of heart failure. In the emergency room he was found to have a significantly elevated BNP at greater than 4300 and was noted to have significant hypoxia requiring BiPAP to obtain adequate oxygenation levels. Because of his significant congestive heart failure history and his general condition is felt he should be admitted to the hospital for further evaluation and treatment. 09/12/2018. No acute events overnight. Mild improvement of his dyspnea, still complaining of orthopnea, he denies any fever, chills, nausea, vomiting, diarrhea, constipation or any urinary symptoms. Since he moved from [place] getting that he had a 2D echo about 4 months ago and reporting an ejection fraction of about 20%. 09/13/2018. No acute events overnight. Dyspnea and orthopnea has improved. Ambulatory, normal bowel and bladder function. He denies any fever, chills, nausea, vomiting, diarrhea, constipation or any urinary symptoms. Cardiology on board, pending medical records from [place]. 09/14/2018. Patient is ambulatory, dyspnea and orthopnea has improved. Normal bowel and bladder function. He denies any fever, chills, nausea, vomiting, diarrhea, constipation or any urinary symptoms. Cardiology on board, pending medical records from [place]. 09/15/2017. No acute events overnight. Complaining of nonproductive cough, pleuritic chest pain. Denies any fever, chills, nausea, vomiting, diarrhea, constipation or any urinary symptoms. Ambulatory, p.o. tolerant, normal bowel and bladder movements. Records have been received, Dr. Richards on board, plan is possible transfer for an ICD placement in a tertiary center. Reason For Visit: ACUTE ON CHRONIC CONGESTIVE HEART FAILURE WITH Physical Exam Vital Signs: Temp Pulse Resp BP Pulse Ox 97.2 F 91 12 126/84 H 95 09/15/18 11:10 09/15/18 11:10 09/15/18 11:10 09/15/18 11:10 09/15/18 11:10 Intake & Output 09/14/18 09/15/18 09/16/18 06:59 06:59 06:59 Intake Total 1331 928 237 Output Total 1200 4050 625 Balance 579 -0880 -269 Weight 61 kg 59.6 kg General appearance: PRESENT: no acute distress, well-developed, well-nourished Head exam: PRESENT: atraumatic, normocephalic Respiratory exam: PRESENT: clear to auscultation jody, crackles - Left lower lung. ABSENT: rales, rhonchi, wheezes Cardiovascular exam: PRESENT: RRR. ABSENT: diastolic murmur, rubs, systolic murmur GI/Abdominal exam: PRESENT: normal bowel sounds, soft. ABSENT: distended, guarding, mass, organolmegaly, rebound, tenderness Extremities exam: PRESENT: +1 edema Neurological exam: PRESENT: alert, awake, oriented to person, oriented to place, oriented to time, oriented to situation, CN II-XII grossly intact. ABSENT: motor sensory deficit Results Laboratory Results: 09/15/18 06:20 09/15/18 06:20 09/15/18 09/15/18 06:20 06:20 WBC 10.6 H RBC 5.38 Hgb 15.6 Hct 47.2 MCV 88 MCH 29.0 MCHC 33.0 RDW 20.1 H Plt Count 130 L Seg Neutrophils % Not Reportable Lymphocytes % Not Reportable Monocytes % Not Reportable Eosinophils % Not Reportable Basophils % Not Reportable Absolute Neutrophils Not Reportable Absolute Lymphocytes Not Reportable Absolute Monocytes Not Reportable Absolute Eosinophils Not Reportable Absolute Basophils Not Reportable Sodium 138.3 Potassium 4.1 Chloride 100 Carbon Dioxide 31 H Anion Gap 7 BUN 37 H Creatinine 0.90 Est GFR ( Amer) > 60 Est GFR (Non-Af Amer) > 60 Glucose 182 H Calcium 8.6 Magnesium 2.4 H Total Bilirubin 2.1 H AST 45 ALT 40 Alkaline Phosphatase 133 H Total Protein 6.2 L Albumin 3.1 L 09/11/18 09/11/18 09/11/18 21:35 21:35 21:35 Creatine Kinase 159 CK-MB (CK-2) 4.51 Troponin I 0.034 NT-Pro-B Natriuret Pep 4310 H 09/12/18 09/12/18 09/12/18 04:20 04:20 09:38 Creatine Kinase 116 108 CK-MB (CK-2) 3.69 Troponin I 0.021 NT-Pro-B Natriuret Pep 09/12/18 09/12/18 09/12/18 09:58 15:24 15:24 Creatine Kinase 120 CK-MB (CK-2) 3.76 4.98 H Troponin I 0.017 0.015 NT-Pro-B Natriuret Pep Impressions: Chest X-Ray 09/11/18 21:41 IMPRESSION: Cardiomegaly. Scarring left midlung copyright 2011 [id number]- All Rights Reserved Abdomen Ultrasound 09/14/18 00:00 IMPRESSION: Echogenic liver from diffuse hepatocellular disease. Suspect cirrhosis. Small amount of right upper quadrant free fluid Assessment and Plan - Diagnosis (1) Pulmonary edema with congestive heart failure Is this a current diagnosis for this admission?: Yes Plan: Due to acute CHF. Continue treatment for underlying CHF exacerbation, supplemental oxygen, BiPAP, duo nebs. Cardiac diet, volume restriction. (2) Acute exacerbation of CHF (congestive heart failure) Qualifiers: Heart failure type: systolic Qualified Code(s): I50.23 - Acute on chronic systolic (congestive) heart failure Is this a current diagnosis for this admission?: Yes Plan: Acute on chronic systolic heart failure 09/13/2018. 2D echo ejection fraction less than 20%. Left ventricular systolic function severely reduced. Severe global hypokinesis of the left ventricle. Denies any history of CAD. Mild elevation of troponins, trending down. Likely due to demand mismatch. Denies any active chest pain. BNP > 4000. Has history of hypertension. TSH, T4/T3 within normal limits. Never had a left heart cath. Reporting a 2D echo done 4 months ago with ejection fraction of about 20%. Compliant with his diet and medications. Cardiac diet, strict in and out, daily weights, volume restriction. CHLOE, beta blockers, spironolactone, Lasix guided by volume status and vitals. Adjust dosage as needed. Records have been received from [place]. Dr. Richards on board. Possible transfer to [place] for ICD placement. (3) Chronic obstructive pulmonary disease (COPD) Qualifiers: COPD type: unspecified COPD Qualified Code(s): J44.9 - Chronic obstructive pulmonary disease, unspecified Is this a current diagnosis for this admission?: Yes Plan: DuoNeb's, BiPAP, IV steroids, supplemental oxygen. Outpatient pulmonary follow- up. (4) HTN (hypertension) Is this a current diagnosis for this admission?: Yes Plan: Improving not optimized. CHLOE, beta-eloina, IV Lasix. Hydralazine as needed. Adjust Meds as needed. Outpatient PCP follow-up. Patient had some episodes of hypotension recorded on EMR, asymptomatic. DC Spiranolactone. Continue IV lasix TID. Monitor volume status and vitals. (5) Restless legs syndrome (RLS) Is this a current diagnosis for this admission?: Yes Plan: Restart home meds. (6) Tobacco use disorder, severe, dependence Is this a current diagnosis for this admission?: Yes Plan: Smoking cessation is advised. A nicotine replacement patch will be available to patient. (7) Liver cirrhosis Qualifiers: Ascites presence: without ascites Is this a current diagnosis for this admission?: Yes Plan: Denies any history of heavy alcoholism. Abdominal ultrasound positive for cirrhosis. Hepatitis panel negative. This most likely congestive cirrhosis due to his underlying CHF. (8) Thrombocytopenia Is this a current diagnosis for this admission?: Yes Plan: Secondary to liver cirrhosis. Active bleeding. Monitor H&H and platelets (9) Pneumonia Is this a current diagnosis for this admission?: Yes Plan: Most likely community acquired due to strep pneumo. Improving. Day 2/5 of levofloxacin.
[2018-09-15] MEDS: LEVOFLOXACIN 500 MG TABLET PO SCH (18:07)
--- NOTE | 2018-09-15 20:48 | Progress Note ---
Provider Note Provider Note: CARDIOLOGY PROGRESS NOTE by Dr. Mallory Richards on 09/15/2018. SUBJECTIVE: The patient shortness of breath is much better. He complains of cough productive of some greenish sputum. He does have some occasional episodes of orthopnea but no PND. His leg edema he states is not coming down with the current dose of Lasix. We will watch and maybe change the Lasix later on. The patient has no chest pain or discomfort. There is no TIA CVA symptoms. There is no arrhythmias seen on the monitor. There is no TIA CVA symptoms PHYSICAL EXAMINATION: Patient is well-built and well-nourished. He is slightly anxious but in no acute distress. Selected Entries 09/15/18 11:10 Temperature 97.2 F Temperature Axillary Source Pulse Rate 91 Respiratory 12 Rate Blood Pressure 126/84 H Blood Pressure 98 Mean BP Location Right Arm BP Position Standing O2 Sat by Pulse 95 Oximetry Oxygen Delivery Room Air Method HEAD: Is atraumatic normocephalic. EYES: Pupils are equal round regular reactive to light accommodation. Extraocular movements are normal. There is no clinical pallor. There is no scleral icterus. EARS: Tympanic membranes are intact. External auditory canals are clear. NOSE: There is no inflammation nasal mucous membranes. There is no deviated nasal septum. MOUTH: Mucous membranes of the mouth are moist tongue is moist there is no ulcers there is no bleeding from the gums. THROAT: There is no redness of the oropharynx there is no exudates. SKIN: There is no skin rashes or skin lesions. There is no petechia or ecchymosis. NECK: Is supple. There is no JVD. Carotids are equal there is no bruit. There is no goiter. There is no lymphadenopathy. There is no accessory muscle respiration in use. Trachea central. LUNGS: There is diminished air entry and prolonged expiration. There is scattered rhonchi. There are bibasilar rales of CHF also. On percussion there is hyperresonance. On palpation there is no chest wall tenderness. HEART: S1-S2 is heard. There is no S3 gallop. There is no S4 gallop. There is systolic murmur left sternal border and the apex there is murmur of significant tricuspid regurgitation and mitral regurgitation with the the MR murmur being heard in the apex with radiation to the left axilla. There is no rub. ABDOMEN: Is soft there is no hepatosplenomegaly. Bowel sounds are well heard. There is no tender areas of masses. EXTREMITIES: Femorals are slightly diminished. There is no femoral bruits. Leg pulses are diminished. There is 2- pedal edema bilaterally. There is chronic venous stasis dermatitis changes present in the skin. There is no DVT or cellulitis. There is no calf tenderness. There is no cyanosis or clubbing. Capillary refill is normal. PRINCIPAL PROCESS ENGINEER: The patient is conscious awake alert oriented x3 with no focal deficits. PSYCHIATRIC: The patient judgment and insight are intact her affect is normal 09/15/18 09/15/18 09/15/18 06:20 06:20 06:20 WBC 10.6 H RBC 5.38 Hgb 15.6 Hct 47.2 MCV 88 MCH 29.0 MCHC 33.0 RDW 20.1 H Plt Count 130 L Total Counted 100 PT 15.6 H INR 1.18 Sodium 138.3 Potassium 4.1 Chloride 100 Carbon Dioxide 31 H Anion Gap 7 BUN 37 H Creatinine 0.90 Est GFR (Non-Af Amer) > 60 Glucose 182 H Calcium 8.6 Magnesium 2.4 H Total Bilirubin 2.1 H Direct Bilirubin 0.9 H Neonat Total Bilirubin Not Reportable Neonat Direct Bilirubin Not Reportable Neonat Indirect Bili Not Reportable AST 45 ALT 40 Alkaline Phosphatase 133 H Total Protein 6.2 L Albumin 3.1 L Digoxin 0.61 L IMPRESSION/RECOMMENDATION: 1. 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 Unfortunately the patient's blood pressure is on the lower side. He may require midodrine later on. We will see if with the afterload reduction his blood pressure does come up so that doses can be increased. The patient's Lasix is 20 mg IV push every 8 hours. Continue aspirin. Will continue the patient digoxin. The patient is rather subtherapeutic. But this will build up over the next few days. 2. Acute exacerbation of COPD: Improving. Continue respiratory treatments. Would recommend using Xopenex instead of albuterol. Continue supplemental oxygen and BiPAP as needed. The patient states that the BiPAP makes him feel better, and he wants to have a BiPAP at home. Hence will talk to the hospitalist and get a pulmonary consult to see if this is feasible. 3. 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 But will wait for the patient's records. 4. Tobacco abuse disorder: Tobacco cessation counseling given. Ill effects of tobacco discussed with the patient in detail. 5. History of shocks per LifeVest. Would watch the patient's rhythm closely. The patient does not want to wear a LifeVest. If the patient's echo was done more than 3 months ago and did show a reduced ejection fraction of 35% or below, and then would transfer the patient for an AICD, since the patient's at a high risk for sudden . 6. Dyslipidemia with low HDL levels, and a very good LDL and triglyceride levels. Unfortunately I believe the statins will get history of lower. Hence would target increasing the patient's exercise and diet to see if the HDL will come up. 7. Asymptomatic relative hypotension: If this continues would recommend adding midodrine to bring the blood pressure up, so that his anti-cardiomyopathy gold standard medications can be given in reasonable/therapeutic doses. 8. Severe tricuspid regurgitation, but only mild pulmonary hypertension. 9. Moderate mitral regurgitation. This MR TR is due to annular dilatation of the valves due to dilatation of the left ventricle in the right ventricle. Medications reviewed. New medications added. Medical decision making in view of the above is of high complexity. 60 minutes spent on this patient more than 50% of time spent in direct patient care. Management plan discussed with the attending physician Dr. PARKER., The hospitalist. The patient will need an AICD placement most likely this admission. Hence later on will make arrangements for transfer to [facility] in [place] will follow.
[2018-09-15] MEDS: ZOLPIDEM TARTRATE 5 MG TABLET PO PRN (21:19)
[2018-09-16] MEDS: IPRATROPIUM BROMIDE 0.02% NEB 0.5 MG/2.5 ML AMPUL NEB SCH ×2 (00:02→07:53)
[2018-09-16] MEDS: LEVALBUTEROL HCL NEB 1.25 MG/3 ML AMPUL NEB SCH ×2 (00:02→07:53)
[2018-09-16] MEDS: HEPARIN SOD (PORCINE) 5,000 UNIT/ML 1 ML SYRINGE SUBCUT SCH ×3 (05:09→21:29)
[2018-09-16 06:37] LABS: HEPATITIS A AB IGM Negative (Negative); HEPATITIS B CORE AB IGM Negative (Negative); HEPATITS B SURFACE ANTIGEN Negative (Negative)
[2018-09-16 07:32] LABS: HEPATITIS C VIRUS ANTIBODY <0.1 s/co ratio (0.0-0.9)
[2018-09-16] MEDS: BUDESONIDE NEB 0.5 MG/2 ML AMPUL NEB SCH (07:53)
[2018-09-16] MEDS: DOCUSATE SODIUM 100 MG CAPSULE PO SCH ×2 (09:56→18:07)
[2018-09-16] MEDS: LEVOFLOXACIN 500 MG TABLET PO SCH (10:03)
[2018-09-16] MEDS: METHYLPREDNISOLONE INJ 40 MG/1 ML SDV IV SCH ×2 (10:03→21:27)
[2018-09-16] MEDS: METOPROLOL SUCCINATE 25 MG TAB.SR.24H PO SCH ×2 (10:03→21:29)
[2018-09-16] MEDS: FAMOTIDINE 20 MG TABLET PO SCH ×2 (10:03→21:29)
[2018-09-16] MEDS: DIGOXIN 0.125 MG TABLET PO SCH (10:04)
[2018-09-16] MEDS: LISINOPRIL 5 MG TABLET PO SCH ×2 (10:04→21:29)
[2018-09-16] MEDS: BUMETANIDE INJ/PF 1 MG/4 ML SDV IV SCH ×2 (10:10→21:28)
--- NOTE | 2018-09-16 14:36 | PDOC TRANSFER SUMMARY ---
General Admission Date/PCP: 09/11/18 23:39 Resuscitation Status: Full Code - Transfer Diagnosis (1) Pulmonary edema with congestive heart failure Is this a current diagnosis for this admission?: Yes (2) Acute exacerbation of CHF (congestive heart failure) Is this a current diagnosis for this admission?: Yes (3) Chronic obstructive pulmonary disease (COPD) Is this a current diagnosis for this admission?: Yes (4) HTN (hypertension) Is this a current diagnosis for this admission?: Yes (5) Restless legs syndrome (RLS) Is this a current diagnosis for this admission?: Yes (6) Tobacco use disorder, severe, dependence Is this a current diagnosis for this admission?: Yes (7) Liver cirrhosis Is this a current diagnosis for this admission?: Yes (8) Thrombocytopenia Is this a current diagnosis for this admission?: Yes (9) Pneumonia Is this a current diagnosis for this admission?: Yes - Transfer Medications Home Medications: Albuterol Sulfate [Ventolin Hfa 8 gm Mdi (1 Mdi/ER Disp)] 1 puff IH Q6HP PRN 09/12/18 Aspirin [Ecotrin 81 mg EC Tablet] 81 mg PO DAILY 09/12/18 Furosemide [Lasix 20 mg Tablet] 20 mg PO DAILY 09/12/18 Transfer Medications: Current Medications Acetaminophen (Tylenol 325 Mg Tablet) 650 mg PO Q4HP PRN PRN Reason: For headache, pain or fever Stop: 10/12/18 00:52 Last Admin: 09/13/18 21:26 Dose: 650 mg Documented by: Al Hydrox/Mg Hydrox/Simethicone (Maalox Plus Susp 30 Udcup) 30 ml PO Q6HP PRN PRN Reason: HEARTBURN Stop: 10/12/18 00:44 Last Admin: 09/15/18 08:54 Dose: 30 ml Documented by: Bumetanide (Bumex Inj/Pf 1 Mg/4 Ml Sdv) 2 mg IV Q12 TETO Stop: 10/15/18 09:59 Last Admin: 09/16/18 10:10 Dose: 2 mg Documented by: Digoxin (Lanoxin 0.125 Mg Tablet) 0.125 mg PO DAILY TETO Stop: 10/14/18 09:59 Last Admin: 09/16/18 10:04 Dose: 0.125 mg Documented by: Docusate Sodium (Colace 100 Mg Capsule) 100 mg PO BID TETO Stop: 10/12/18 09:59 Last Admin: 09/16/18 09:56 Dose: Not Given Documented by: Famotidine (Pepcid 20 Mg Tablet) 20 mg PO Q12 TETO Stop: 10/12/18 09:59 Last Admin: 09/16/18 10:03 Dose: 20 mg Documented by: Guaifenesin (Robitussin Syrup 200 Mg/10 Ml Ud Cup) 200 mg PO Q4HP PRN PRN Reason: COUGH Stop: 10/15/18 11:23 Last Admin: 09/15/18 13:56 Dose: 200 mg Documented by: Heparin Sodium (Porcine) (Heparin Inj 5,000 Units/Ml 1 Ml Syringe) 5,000 unit SUBCUT Q8 [facility] Stop: 10/12/18 05:59 Last Admin: 09/16/18 05:09 Dose: Not Given Documented by: Hydralazine HCl (Apresoline Inj/Pf 20 Mg/1 Ml Sdv) 20 mg IV Q4HP PRN PRN Reason: Give For Sbp > 160 / Dbp > 100 Stop: 10/12/18 00:52 Levalbuterol HCl (Xopenex Neb 0.63 Mg/3 Ml Ampul) 0.63 mg NEB RTQ1HP PRN PRN Reason: SHORTNESS OF BREATH Stop: 10/12/18 00:53 Last Admin: 09/14/18 14:58 Dose: 0.63 mg Documented by: Levofloxacin (Levaquin 500 Mg Tablet) 500 mg PO DAILY [facility] Stop: 09/22/18 15:59 Last Admin: 09/16/18 10:03 Dose: 500 mg Documented by: Lisinopril (Prinivil 5 Mg Tablet) 2.5 mg PO Q12 [facility] Stop: 10/15/18 09:59 Last Admin: 09/16/18 10:04 Dose: 2.5 mg Documented by: Magnesium Hydroxide (Milk Of Magnesia 30 Ml Udcup) 30 ml PO HSP PRN PRN Reason: FOR CONSTIPATION Stop: 10/12/18 00:44 Methylprednisolone Sodium Succinate (Solu-Medrol Inj/Pf 40 Mg/1 Ml Sdv) 40 mg IV Q12 [facility] Stop: 10/12/18 21:59 Last Admin: 09/16/18 10:03 Dose: 40 mg Documented by: Metoprolol Succinate (Toprol Xl 25 Mg Tab.Sr) 25 mg PO Q12 [facility] Stop: 10/15/18 09:59 Last Admin: 09/16/18 10:03 Dose: 25 mg Documented by: Morphine Sulfate (Morphine 10 Mg/Ml Inj) 2 mg IV Q4HP PRN PRN Reason: PAIN SCALE 1-2/5 Stop: 09/19/18 14:45 Last Admin: 09/15/18 08:49 Dose: 2 mg Documented by: Nicotine (Nicoderm 21 Mg/24 Hr Transderm Patch) 1 each TD DAILYP PRN PRN Reason: WITHDRAWAL SYMPTOMS Stop: 10/12/18 00:52 Ondansetron HCl (Zofran Inj/Pf 4 Mg/2 Ml Sdv) 4 mg IV Q4HP PRN PRN Reason: FOR NAUSEA/VOMITING Stop: 10/12/18 00:44 Ondansetron HCl (Zofran Odt 4 Mg Tablet) 4 mg PO Q4HP PRN PRN Reason: FOR NAUSEA/VOMITING Stop: 10/12/18 00:44 Sodium Chloride (Saline Flush 2.5 Ml Monoject Prefil Syrin) 2.5 ml IV Q8 [facility] Stop: 10/12/18 05:59 Last Admin: 09/16/18 05:09 Dose: 2.5 ml Documented by: Throat Lozenges (Chloraseptic Sore Throat Lozenge) 1 each BUCCAL Q4HP PRN PRN Reason: FOR SORE THROAT Stop: 10/15/18 11:23 Last Admin: 09/15/18 13:56 Dose: 1 each Documented by: Zolpidem Tartrate (Ambien 5 Mg Tablet) 5 mg PO HSP PRN PRN Reason: SLEEP OR INSOMNIA Stop: 09/19/18 00:44 Last Admin: 09/15/18 21:19 Dose: 5 mg Documented by: - Allergies Allergies/Adverse Reactions: Penicillins Adverse Reaction (Verified 09/11/18 22:06) Hives - Diet/Activity Discharge Diet: Cardiac Hospital Course Hospital Course: LOC SYED is a 57 year old male with past medical history of COPD, current smoker, dilated cardiomyopathy who presented to the emergency room with a 3-day history of progressively worsening dyspnea. He admits that for 3 days he has gradually become more short of breath to the point where it had become severe resulting in his presentation to the emergency room. He additionally admits that his dyspnea has been accompanied by gradually worsening orthopnea, exertion related episodic mild to moderate tightness in his anterior chest and gradually worsening swelling of his bilateral lower extremities. He also reports related symptoms of mild to moderate nausea with vomiting. He admits to numerous prior similar episodes with flareups of his congestive heart failure and/or COPD. He continues to smoke cigarettes. He further admits that he has worn a LifeVest for treatment of his CHF in the past however he has moved from [place] where this was available to [place] to live with his daughter and he no longer has access to this treatment and has not developed a relationship with a primary care physician or planning division superintendent locally. He has not identified any other aggravating or ameliorating factors for his acute exacerbations of just of heart failure. In the emergency room he was found to have a significantly elevated BNP at greater than 4300 and was noted to have significant hypoxia requiring BiPAP to obtain adequate oxygenation levels. Because of his significant congestive heart failure history and his general condition is felt he should be admitted to the hospital for further evaluation and treatment. (1) Pulmonary edema with congestive heart failure Due to acute CHF. Continue treatment for underlying CHF exacerbation, supplemental oxygen, BiPAP, duo nebs. Cardiac diet, volume restriction. (2) Acute exacerbation of CHF (congestive heart failure) Acute on chronic systolic heart failure 09/13/2018. 2D echo ejection fraction less than 20%. Left ventricular systolic function severely reduced. Severe global hypokinesis of the left ventricle. Denies any history of CAD. Mild elevation of troponins, trending down. Likely due to demand mismatch. Denies any active chest pain. BNP > 4000. Has history of hypertension. TSH, T4/T3 within normal limits. Never had a left heart cath. Reporting a 2D echo done 4 months ago with ejection fraction of about 20%. Compliant with his diet and medications. Cardiac diet, strict in and out, daily weights, volume restriction. CHLOE, beta blockers, spironolactone, Lasix guided by volume status and vitals. Adjust dosage as needed. Records have been received from [place]. Dr. Richards cardiology has graciously arranged for transfer to [facility] for possible ICD placement. (3) Chronic obstructive pulmonary disease (COPD) Continued on DuoNeb's, BiPAP, IV steroids, supplemental oxygen. (4) HTN (hypertension) Normotensive. Started on CHLOE, beta-eloina, IV Lasix. Hydralazine as needed. Adjust Meds as needed. Outpatient PCP follow-up. Patient had some episodes of hypotension recorded on EMR, asymptomatic. DC Spiranolactone. Continue IV lasix TID. Monitor volume status and vitals. (5) Restless legs syndrome (RLS) Restart home meds. (6) Tobacco use disorder, severe, dependence Smoking cessation is advised. A nicotine replacement patch will be available to patient. (7) Liver cirrhosis Denies any history of heavy alcoholism. Abdominal ultrasound positive for cirrhosis. Hepatitis panel negative. This most likely congestive cirrhosis due to his underlying CHF. (8) Thrombocytopenia Secondary to liver cirrhosis. Active bleeding. Monitor H&H and platelets (9) Pneumonia Most likely community acquired due to strep pneumo. Improving. Day 2 of levofloxacin. Physical Exam Vital Signs: Temp Pulse Resp BP Pulse Ox 98.0 F 49 L 22 H 123/72 100 09/16/18 08:04 09/16/18 11:46 09/16/18 11:46 09/16/18 11:46 09/16/18 11:46 Intake & Output 09/15/18 09/16/18 09/17/18 06:59 06:59 06:59 Intake Total 928 1461 594 Output Total 4050 1650 450 Balance -3122 -189 144 Weight 59.6 kg 56.9 kg General appearance: PRESENT: no acute distress, well-developed, well-nourished Head exam: PRESENT: atraumatic, normocephalic Respiratory exam: PRESENT: clear to auscultation jody, crackles - Left lower lobe.. ABSENT: rales, rhonchi, wheezes GI/Abdominal exam: PRESENT: normal bowel sounds, soft. ABSENT: distended, guarding, mass, organolmegaly, rebound, tenderness Extremities exam: PRESENT: +2 edema Neurological exam: PRESENT: alert, awake, oriented to person, oriented to place, oriented to time, oriented to situation, CN II-XII grossly intact. ABSENT: motor sensory deficit Results Laboratory Results: 09/15/18 06:20 09/15/18 06:20 09/11/18 09/11/18 09/11/18 21:35 21:35 21:35 Creatine Kinase 159 CK-MB (CK-2) 4.51 Troponin I 0.034 NT-Pro-B Natriuret Pep 4310 H 09/12/18 09/12/18 09/12/18 04:20 04:20 09:38 Creatine Kinase 116 108 CK-MB (CK-2) 3.69 Troponin I 0.021 NT-Pro-B Natriuret Pep 09/12/18 09/12/18 09/12/18 09:58 15:24 15:24 Creatine Kinase 120 CK-MB (CK-2) 3.76 4.98 H Troponin I 0.017 0.015 NT-Pro-B Natriuret Pep Impressions: Chest X-Ray 09/11/18 21:41 IMPRESSION: Cardiomegaly. Scarring left midlung copyright 2011 [employer]- All Rights Reserved Abdomen Ultrasound 09/14/18 00:00 IMPRESSION: Echogenic liver from diffuse hepatocellular disease. Suspect cirrhosis. Small amount of right upper quadrant free fluid
[2018-09-16] MEDS: MORPHINE SULFATE 10 MG/ML INJ IV PRN (21:28)
[2018-09-16] MEDS: ZOLPIDEM TARTRATE 5 MG TABLET PO PRN (21:29)
--- NOTE | 2018-09-16 23:01 | Progress Note ---
Provider Note Provider Note: CARDIOLOGY PROGRESS NOTE by Dr. Aliesha Richards on 09/16/2018. SUBJECTIVE: The patient denies any chest pain or discomfort. There is no PND orthopnea. His cough is much improved and is not producing any sputum. There is no arrhythmias seen on the monitor. His leg edema is improving. The patient is very restless. He wants to get this AICD done. I have discussed the case with the [employer] pattern changer and repairer the patient has been accepted pending availability of a bed. There is no TIA or CVA symptoms. PHYSICAL EXAMINATION: The patient is well-built and well-nourished. Pleasant no acute distress. Selected Entries 09/16/18 09/16/18 08:04 09:00 Temperature 98.0 F Temperature Oral Source Pulse Rate 88 Respiratory 20 Rate Blood Pressure 108/79 Blood Pressure 88 Mean BP Location Left Arm BP Position Sitting Oxygen Delivery Room Air Method Premature 4 Ventricular Counted Beats HEAD: Is atraumatic normocephalic. EYES: Pupils are equal round regular reactive to light accommodation. Extraocular movements are normal. There is no clinical pallor. There is no scleral icterus. EARS: Tympanic membranes are intact. External auditory canals are clear. NOSE: There is no inflammation nasal mucous membranes. There is no deviated nasal septum. MOUTH: Mucous membranes of the mouth are moist tongue is moist there is no ulcers there is no bleeding from the gums. THROAT: There is no redness of the oropharynx there is no exudates. SKIN: There is no skin rashes or skin lesions. There is no petechia or ecchymosis. NECK: Is supple. There is no JVD. Carotids are equal there is no bruit. There is no goiter. There is no lymphadenopathy. There is no accessory muscle respiration in use. Trachea central. LUNGS: There is diminished air entry and prolonged expiration. There is no wheezing or rhonchi. There are no rales of CHF also. On percussion there is hyperresonance. On palpation there is no chest wall tenderness. HEART: S1-S2 is heard. There is no S3 gallop. There is no S4 gallop. There is systolic murmur left sternal border and the apex there is murmur of significant tricuspid regurgitation and mitral regurgitation with the the MR murmur being heard in the apex with radiation to the left axilla. There is no rub. ABDOMEN: Is soft there is no hepatosplenomegaly. Bowel sounds are well heard. There is no tender areas of masses. EXTREMITIES: Femorals are slightly diminished. There is no femoral bruits. Leg pulses are diminished. There is 1+ pedal edema bilaterally. There is chronic venous stasis dermatitis changes present in the skin. There is no DVT or cellulitis. There is no calf tenderness. There is no cyanosis or clubbing. Capillary refill is normal. HOME CARE ADMINISTRATOR: The patient is conscious awake alert oriented x3 with no focal deficits. PSYCHIATRIC: The patient judgment and insight are intact her affect is normal Patient's 24-hour intake is 1461 mL. Is a 24-hour output is 1650. Note I did get records from [facility] in [place]. As per the records there was in February 2018 there was a question of LV thrombus. Echocardiogram showed that there was no thrombus. Also there was a suspicion for pulmonary embolism. This was also found that this was an artifact and not really a pulmonary embolism. He also mentions that his EF was 20% to 25%. He also mentions and that, although I do not have the actual cath cardiac catheterization report, the patient had a 80% narrowing in the diagonal branch and a 70% narrowing in the obtuse marginal 1 branch. These were too small caliber to have percutaneous intervention done. There was mild to moderate disease in the other vessels. Hence we will leave it to the hoop machine operator at [facility] cardiology, to decide whether they would repeat a cardiac catheterization on the patient to make sure that there is no progression of coronary artery disease, since the cardiac catheterization was in almost a little less than 6 months ago. Or if they would want to proceed with the AICD. This has been discussed with the patient, and that the [facility] hoop machine operator will decide this. Case was discussed with the pattern changer and repairer of [facility] cardiology, [place] and the patient has been accepted pending bed availability. IMPRESSION/RECOMMENDATION: 1. 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 Unfortunately the patient's blood pressure is on the lower side. He may require midodrine later on. We will see if with the afterload reduction his blood pressure does come up so that doses can be increased. Would change the patient's Lasix to Bumex IV push every 12 hours[address] aspirin[address] Will place the patient on digoxin 0.25 mg p.o. x1 now and 0.125 mg p.o. daily. 2. Acute exacerbation of COPD: Improving. Continue respiratory treatments. Would recommend using Xopenex instead of albuterol. Continue supplemental oxygen and BiPAP as needed. The patient states that the BiPAP makes him feel better, and he wants to have a BiPAP at home. Hence will talk to the hospitalist and get a pulmonary consult to see if this is feasible. Notes that the patient COPD has improved and is back to baseline. 3. 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 4. Tobacco abuse disorder: Tobacco cessation counseling given. Ill effects of tobacco discussed with the patient in detail. 5. History of shocks per LifeVest in the past in [place].. Would watch the patient's rhythm closely. The patient does not want to wear a LifeVest. If the patient's echo was done more than 3 months ago and did show a reduced ejection fraction of 35% or below, and then would transfer the patient for an AICD, since the patient's at a high risk for sudden . 6. Coronary artery disease: No anginal symptoms. Patient denies prior history of OR. As per his records although actual cardiac catheterization report is not available he states that the patient had a 80% narrowing of the diagonal branch and it is 70% narrowing in the obtuse marginal 1 branch. These were to0 small in caliber to have percutaneously intervention done. 7. Asymptomatic relative hypotension: If this continues would recommend adding midodrine to bring the blood pressure up, so that his anti-cardiomyopathy gold standard medications can be given in reasonable/therapeutic doses. 8. Severe tricuspid regurgitation, but only mild pulmonary hypertension. 9. Moderate mitral regurgitation. This MR TR is due to annular dilatation of the valves due to dilatation of the left ventricle in the right ventricle. 10.Dyslipidemia with low HDL levels, and a very good LDL and triglyceride levels. Unfortunately I believe the statins will get history of lower. Hence would target increasing the patient's exercise and diet to see if the HDL will come up Medications reviewed. Medications adjusted. Management plan discussed with the hospitalist attending physician Dr. Wilkins Medical decision making is of high complexity. 40 minutes spent with this patient more than 50% of time spent in direct patient care. Awaiting bed from [facility].
[2018-09-17] MEDS: HEPARIN SOD (PORCINE) 5,000 UNIT/ML 1 ML SYRINGE SUBCUT SCH ×2 (05:10→13:08)
[2018-09-17] MEDS: BUMETANIDE INJ/PF 1 MG/4 ML SDV IV SCH (10:04)
[2018-09-17] MEDS: FAMOTIDINE 20 MG TABLET PO SCH (10:05)
[2018-09-17] MEDS: METOPROLOL SUCCINATE 25 MG TAB.SR.24H PO SCH (10:05)
[2018-09-17] MEDS: LISINOPRIL 5 MG TABLET PO SCH (10:05)
[2018-09-17] MEDS: LEVOFLOXACIN 500 MG TABLET PO SCH (10:05)
[2018-09-17] MEDS: METHYLPREDNISOLONE INJ 40 MG/1 ML SDV IV SCH (10:05)
[2018-09-17] MEDS: DIGOXIN 0.125 MG TABLET PO SCH (10:06)
[2018-09-17] MEDS: DOCUSATE SODIUM 100 MG CAPSULE PO SCH ×2 (10:06→17:33)
--- NOTE | 2018-09-17 14:04 | PDOC PROGRESS REPORT ---
Subjective Progress Note for:: 09/16/18 Subjective:: LOC SYED is a 57 year old male who presented to the emergency room with a 3-day history of progressively worsening dyspnea. He admits that for 3 days he has gradually become more short of breath to the point where it had become severe resulting in his presentation to the emergency room. He additionally admits that his dyspnea has been accompanied by gradually worsening orthopnea, exertion related episodic mild to moderate tightness in his anterior chest as well as constantly present and gradually worsening swelling of his bilateral lower extremities. He also reports related symptoms of mild to moderate nausea with vomiting. He admits to numerous prior similar episodes with flareups of his congestive heart failure and/or COPD. He continues to smoke cigarettes. He further admits that he has worn a LifeVest for treatment of his CHF in the past however he has moved from [place] where this was available to [place] to live with his daughter and he no longer has access to this treatment and has not developed a relationship with a primary care physician or packer insulation locally. He has not identified any other aggravating or ameliorating factors for his acute exacerbations of just of heart failure. In the emergency room he was found to have a significantly elevated BNP at greater than 4300 and was noted to have significant hypoxia requiring BiPAP to obtain adequate oxygenation levels. Because of his significant congestive heart failure history and his general condition is felt he should be admitted to the hospital for further evaluation and treatment. 09/12/2018. No acute events overnight. Mild improvement of his dyspnea, still complaining of orthopnea, he denies any fever, chills, nausea, vomiting, diarrhea, constipation or any urinary symptoms. Since he moved from [place] getting that he had a 2D echo about 4 months ago and reporting an ejection fraction of about 20%. 09/13/2018. No acute events overnight. Dyspnea and orthopnea has improved. Ambulatory, normal bowel and bladder function. He denies any fever, chills, nausea, vomiting, diarrhea, constipation or any urinary symptoms. Cardiology on board, pending medical records from [place]. 09/14/2018. Patient is ambulatory, dyspnea and orthopnea has improved. Normal bowel and bladder function. He denies any fever, chills, nausea, vomiting, diarrhea, constipation or any urinary symptoms. Cardiology on board, pending medical records from [place]. 09/15/2018. No acute events overnight. Complaining of nonproductive cough, pleuritic chest pain. Denies any fever, chills, nausea, vomiting, diarrhea, constipation or any urinary symptoms. Ambulatory, p.o. tolerant, normal bowel and bladder movements. Records have been received, Dr. Richards on board, plan is possible transfer for an ICD placement in a tertiary center. 09/16/2018. No acute events overnight. Cough and pleuritic chest pain has improved. Is any fever, chills, nausea, vomiting, diarrhea, constipation or any urinary symptoms. Has been accepted to be transferred to [facility]. Reason For Visit: ACUTE ON CHRONIC CONGESTIVE HEART FAILURE WITH Physical Exam Vital Signs: Temp Pulse Resp BP Pulse Ox 97.3 F 77 22 H 106/81 96 09/17/18 11:37 09/17/18 11:37 09/17/18 11:37 09/17/18 11:37 09/17/18 11:37 Intake & Output 09/16/18 09/17/18 09/18/18 06:59 06:59 06:59 Intake Total 1461 1262 680 Output Total 1650 2975 700 Balance -189 -1713 -20 Weight 56.9 kg 56.1 kg General appearance: PRESENT: no acute distress, well-developed, well-nourished Head exam: PRESENT: atraumatic, normocephalic Eye exam: PRESENT: conjunctiva pink, EOMI, PERRLA. ABSENT: scleral icterus Ear exam: PRESENT: normal external ear exam Mouth exam: PRESENT: moist, tongue midline Neck exam: ABSENT: carotid bruit, JVD, lymphadenopathy, thyromegaly Respiratory exam: PRESENT: clear to auscultation jody, crackles - Left lower lung. ABSENT: rales, rhonchi, wheezes Cardiovascular exam: PRESENT: RRR. ABSENT: diastolic murmur, rubs, systolic murmur Pulses: PRESENT: normal dorsalis pedis pul Vascular exam: PRESENT: normal capillary refill GI/Abdominal exam: PRESENT: normal bowel sounds, soft. ABSENT: distended, guarding, mass, organolmegaly, rebound, tenderness Rectal exam: PRESENT: deferred Extremities exam: PRESENT: full ROM, +1 edema. ABSENT: calf tenderness, clubbing, pedal edema Neurological exam: PRESENT: alert, awake, oriented to person, oriented to place, oriented to time, oriented to situation, CN II-XII grossly intact. ABSENT: motor sensory deficit Psychiatric exam: PRESENT: appropriate affect, normal mood. ABSENT: homicidal ideation, suicidal ideation Skin exam: PRESENT: dry, intact, warm. ABSENT: cyanosis, rash Results Laboratory Results: 09/15/18 06:20 09/15/18 06:20 09/11/18 09/11/18 09/11/18 21:35 21:35 21:35 Creatine Kinase 159 CK-MB (CK-2) 4.51 Troponin I 0.034 NT-Pro-B Natriuret Pep 4310 H 09/12/18 09/12/18 09/12/18 04:20 04:20 09:38 Creatine Kinase 116 108 CK-MB (CK-2) 3.69 Troponin I 0.021 NT-Pro-B Natriuret Pep 09/12/18 09/12/18 09/12/18 09:58 15:24 15:24 Creatine Kinase 120 CK-MB (CK-2) 3.76 4.98 H Troponin I 0.017 0.015 NT-Pro-B Natriuret Pep Impressions: Chest X-Ray 09/11/18 21:41 IMPRESSION: Cardiomegaly. Scarring left midlung copyright 2011 [employer]- All Rights Reserved Abdomen Ultrasound 09/14/18 00:00 IMPRESSION: Echogenic liver from diffuse hepatocellular disease. Suspect cirrhosis. Small amount of right upper quadrant free fluid Assessment and Plan - Diagnosis (1) Pulmonary edema with congestive heart failure Is this a current diagnosis for this admission?: Yes Plan: Due to acute CHF. Continue treatment for underlying CHF exacerbation, supplemental oxygen, BiPAP, duo nebs. Cardiac diet, volume restriction. (2) Acute exacerbation of CHF (congestive heart failure) Qualifiers: Heart failure type: systolic Qualified Code(s): I50.23 - Acute on chronic systolic (congestive) heart failure Is this a current diagnosis for this admission?: Yes Plan: Acute on chronic systolic heart failure 09/13/2018. 2D echo ejection fraction less than 20%. Left ventricular systolic function severely reduced. Severe global hypokinesis of the left ventricle. Denies any history of CAD. Mild elevation of troponins, trending down. Likely due to demand mismatch. Denies any active chest pain. BNP > 4000. Has history of hypertension. TSH, T4/T3 within normal limits. Never had a left heart cath. Reporting a 2D echo done 4 months ago with ejection fraction of about 20%. Compliant with his diet and medications. Cardiac diet, strict in and out, daily weights, volume restriction. CHLOE, beta blockers, spironolactone, Lasix guided by volume status and vitals. Adjust dosage as needed. Records have been received from [place]. Dr. Richards on board. Possible transfer to [place] for ICD placement. (3) Chronic obstructive pulmonary disease (COPD) Qualifiers: COPD type: unspecified COPD Qualified Code(s): J44.9 - Chronic obstructive pulmonary disease, unspecified Is this a current diagnosis for this admission?: Yes Plan: DuoNeb's, BiPAP, IV steroids, supplemental oxygen. Outpatient pulmonary follow- up. (4) HTN (hypertension) Is this a current diagnosis for this admission?: Yes Plan: Improving not optimized. CHLOE, beta-eloina, IV Lasix. Hydralazine as needed. Adjust Meds as needed. Outpatient PCP follow-up. Patient had some episodes of hypotension recorded on EMR, asymptomatic. DC Spiranolactone. Continue IV lasix TID. Monitor volume status and vitals. (5) Restless legs syndrome (RLS) Is this a current diagnosis for this admission?: Yes Plan: Restart home meds. (6) Tobacco use disorder, severe, dependence Is this a current diagnosis for this admission?: Yes Plan: Smoking cessation is advised. A nicotine replacement patch will be available to patient. (7) Liver cirrhosis Qualifiers: Ascites presence: without ascites Is this a current diagnosis for this admission?: Yes Plan: Denies any history of heavy alcoholism. Abdominal ultrasound positive for cirrhosis. Hepatitis panel negative. This most likely congestive cirrhosis due to his underlying CHF. (8) Thrombocytopenia Is this a current diagnosis for this admission?: Yes Plan: Secondary to liver cirrhosis. Active bleeding. Monitor H&H and platelets (9) Pneumonia Is this a current diagnosis for this admission?: Yes Plan: Most likely community acquired due to strep pneumo. Improving. Day 2/5 of levofloxacin.
--- NOTE | 2018-09-17 14:11 | PDOC PROGRESS REPORT ---
Subjective Progress Note for:: 09/17/18 Subjective:: LOC SYED is a 57 year old male who presented to the emergency room with a 3-day history of progressively worsening dyspnea. He admits that for 3 days he has gradually become more short of breath to the point where it had become severe resulting in his presentation to the emergency room. He additionally admits that his dyspnea has been accompanied by gradually worsening orthopnea, exertion related episodic mild to moderate tightness in his anterior chest as well as constantly present and gradually worsening swelling of his bilateral lower extremities. He also reports related symptoms of mild to moderate nausea with vomiting. He admits to numerous prior similar episodes with flareups of his congestive heart failure and/or COPD. He continues to smoke cigarettes. He further admits that he has worn a LifeVest for treatment of his CHF in the past however he has moved from [place] where this was available to [place] to live with his daughter and he no longer has access to this treatment and has not developed a relationship with a primary care physician or shelter monitor locally. He has not identified any other aggravating or ameliorating factors for his acute exacerbations of just of heart failure. In the emergency room he was found to have a significantly elevated BNP at greater than 4300 and was noted to have significant hypoxia requiring BiPAP to obtain adequate oxygenation levels. Because of his significant congestive heart failure history and his general condition is felt he should be admitted to the hospital for further evaluation and treatment. 09/12/2018. No acute events overnight. Mild improvement of his dyspnea, still complaining of orthopnea, he denies any fever, chills, nausea, vomiting, diarrhea, constipation or any urinary symptoms. Since he moved from [place] getting that he had a 2D echo about 4 months ago and reporting an ejection fraction of about 20%. 09/13/2018. No acute events overnight. Dyspnea and orthopnea has improved. Ambulatory, normal bowel and bladder function. He denies any fever, chills, nausea, vomiting, diarrhea, constipation or any urinary symptoms. Cardiology on board, pending medical records from [place]. 09/14/2018. Patient is ambulatory, dyspnea and orthopnea has improved. Normal bowel and bladder function. He denies any fever, chills, nausea, vomiting, diarrhea, constipation or any urinary symptoms. Cardiology on board, pending medical records from [place]. 09/15/2018. No acute events overnight. Complaining of nonproductive cough, pleuritic chest pain. Denies any fever, chills, nausea, vomiting, diarrhea, constipation or any urinary symptoms. Ambulatory, p.o. tolerant, normal bowel and bladder movements. Records have been received, Dr. Richards on board, plan is possible transfer for an ICD placement in a tertiary center. 09/16/2018. No acute events overnight. Cough and pleuritic chest pain has improved. Is any fever, chills, nausea, vomiting, diarrhea, constipation or any urinary symptoms. Has been accepted to be transferred to [facility]. 09/17/2018. No acute events overnight. Pending transfer to [facility]. Patient ambulatory, p.o. tolerant, having normal bladder and bowel movements. Denies any nausea vomiting diarrhea constipation or any urinary symptoms. He is very anxious to be transferred today. Reason For Visit: ACUTE ON CHRONIC CONGESTIVE HEART FAILURE WITH Physical Exam Vital Signs: Temp Pulse Resp BP Pulse Ox 97.3 F 77 22 H 106/81 96 09/17/18 11:37 09/17/18 11:37 09/17/18 11:37 09/17/18 11:37 09/17/18 11:37 Intake & Output 09/16/18 09/17/18 09/18/18 06:59 06:59 06:59 Intake Total 1461 1262 680 Output Total 1650 2975 700 Balance -189 -1713 -20 Weight 56.9 kg 56.1 kg General appearance: PRESENT: no acute distress, well-developed, well-nourished Head exam: PRESENT: atraumatic, normocephalic Eye exam: PRESENT: conjunctiva pink, EOMI, PERRLA. ABSENT: scleral icterus Ear exam: PRESENT: normal external ear exam Mouth exam: PRESENT: moist, tongue midline Neck exam: ABSENT: carotid bruit, JVD, lymphadenopathy, thyromegaly Respiratory exam: PRESENT: clear to auscultation jody. ABSENT: rales, rhonchi, wheezes Cardiovascular exam: PRESENT: RRR. ABSENT: diastolic murmur, rubs, systolic murmur Pulses: PRESENT: normal dorsalis pedis pul Vascular exam: PRESENT: normal capillary refill GI/Abdominal exam: PRESENT: normal bowel sounds, soft. ABSENT: distended, guarding, mass, organolmegaly, rebound, tenderness Rectal exam: PRESENT: deferred Extremities exam: PRESENT: full ROM, +1 edema. ABSENT: calf tenderness, clubbing, pedal edema Neurological exam: PRESENT: alert, awake, oriented to person, oriented to place, oriented to time, oriented to situation, CN II-XII grossly intact. ABSENT: motor sensory deficit Psychiatric exam: PRESENT: appropriate affect, normal mood. ABSENT: homicidal ideation, suicidal ideation Skin exam: PRESENT: dry, intact, warm. ABSENT: cyanosis, rash Results Laboratory Results: 09/15/18 06:20 09/15/18 06:20 09/11/18 09/11/18 09/11/18 21:35 21:35 21:35 Creatine Kinase 159 CK-MB (CK-2) 4.51 Troponin I 0.034 NT-Pro-B Natriuret Pep 4310 H 09/12/18 09/12/18 09/12/18 04:20 04:20 09:38 Creatine Kinase 116 108 CK-MB (CK-2) 3.69 Troponin I 0.021 NT-Pro-B Natriuret Pep 09/12/18 09/12/18 09/12/18 09:58 15:24 15:24 Creatine Kinase 120 CK-MB (CK-2) 3.76 4.98 H Troponin I 0.017 0.015 NT-Pro-B Natriuret Pep Impressions: Chest X-Ray 09/11/18 21:41 IMPRESSION: Cardiomegaly. Scarring left midlung copyright 2010 [employer]- All Rights Reserved Abdomen Ultrasound 09/14/18 00:00 IMPRESSION: Echogenic liver from diffuse hepatocellular disease. Suspect cirrhosis. Small amount of right upper quadrant free fluid Assessment and Plan - Diagnosis (1) Pulmonary edema with congestive heart failure Is this a current diagnosis for this admission?: Yes Plan: Due to acute CHF. Continue treatment for underlying CHF exacerbation, sup plemental oxygen, BiPAP, duo nebs. Cardiac diet, volume restriction. 09/17/2018. SBP 106-122. T-max 97.3. Pulse 76-84. Respiratory rate 16-22. SPO2 96% on 3 L room air. Weight 56.1 down from 58.4 on admission, in 1262, out 2975, balance -1713 WBC 10.6 Hgb 15.6. Platelets 130 down from 136, 154 on admission. Sodium 138.3. Potassium 4.9. Bicarb 31. Creatinine 0.9. Digoxin 0.125 mg p.o. daily, lisinopril 2.5 twice daily, metoprolol succinate 25 mg p.o. twice daily bumetanide 2 mg IV twice daily (2) Acute exacerbation of CHF (congestive heart failure) Qualifiers: Heart failure type: systolic Qualified Code(s): I50.23 - Acute on chronic systolic (congestive) heart failure Is this a current diagnosis for this admission?: Yes Plan: Acute on chronic systolic heart failure 09/13/2018. 2D echo ejection fraction less than 20%. Left ventricular systolic function severely reduced. Severe global hypokinesis of the left ventricle. 09/17/2018. SBP 106-122. T-max 97.3. Pulse 76-84. Respiratory rate 16-22. SPO2 96% on 3 L room air. Weight 56.1 down from 58.4 on admission, in 1262, out 2975, balance -1713 WBC 10.6 Hgb 15.6. Platelets 130 down from 136, 154 on admission. Sodium 138.3. Potassium 4.9. Bicarb 31. Creatinine 0.9. Digoxin 0.125 mg p.o. daily, lisinopril 2.5 twice daily, metoprolol succinate 25 mg p.o. twice daily bumetanide 2 mg IV twice daily Denies any history of CAD. Mild elevation of troponins, trending down. Likely due to demand mismatch. Denies any active chest pain. BNP > 4000. Has history of hypertension. TSH, T4/T3 within normal limits. Never had a left heart cath. Reporting a 2D echo done 4 months ago with ejection fraction of about 20%. Compliant with his diet and medications. Cardiac diet, strict in and out, daily weights, volume restriction. CHLOE, beta blockers, spironolactone, Lasix guided by volume status and vitals. Adjust dosage as needed. Records have been received from [place]. Dr. Richards on board. Possible transfer to [place] for ICD placement. (3) Chronic obstructive pulmonary disease (COPD) Qualifiers: COPD type: unspecified COPD Qualified Code(s): J44.9 - Chronic obstructive pulmonary disease, unspecified Is this a current diagnosis for this admission?: Yes Plan: DuoNeb's, BiPAP, IV steroids, supplemental oxygen. Outpatient pulmonary follow- up. (4) HTN (hypertension) Is this a current diagnosis for this admission?: Yes Plan: Improving not optimized. CHLOE, beta-eloina, IV Lasix. Hydralazine as needed. Adjust Meds as needed. Outpatient PCP follow-up. 09/17/2018. SBP 106-122. T-max 97.3. Pulse 76-84. Respiratory rate 16-22. SPO2 96% on 3 L room air. Weight 56.1 down from 58.4 on admission, in 1262, out 2975, balance -1713 Digoxin 0.125 mg p.o. daily, lisinopril 2.5 twice daily, metoprolol succinate 25 mg p.o. twice daily bumetanide 2 mg IV twice daily Patient had some episodes of hypotension recorded on EMR, asymptomatic. DC Spiranolactone. Continue IV lasix TID. Monitor volume status and vitals. (5) Restless legs syndrome (RLS) Is this a current diagnosis for this admission?: Yes Plan: Restart home meds. (6) Tobacco use disorder, severe, dependence Is this a current diagnosis for this admission?: Yes Plan: Smoking cessation is advised. A nicotine replacement patch will be available to patient. (7) Liver cirrhosis Qualifiers: Ascites presence: without ascites Is this a current diagnosis for this admission?: Yes Plan: Denies any history of heavy alcoholism. Abdominal ultrasound positive for cirrhosis. Hepatitis panel negative. This most likely congestive cirrhosis due to his underlying CHF. WBC 10.6 Hgb 15.6. Platelets 130 down from 136, 154 on admission. Sodium 138.3. Potassium 4.9. Bicarb 31. Creatinine 0.9. (8) Thrombocytopenia Is this a current diagnosis for this admission?: Yes Plan: Secondary to liver cirrhosis. Active bleeding. Monitor H&H and platelets 09/17/2018. WBC 10.6 Hgb 15.6. Platelets 130 down from 136, 154 on admission. Sodium 138.3. Potassium 4.9. Bicarb 31. Creatinine 0.9. (9) Pneumonia Is this a current diagnosis for this admission?: Yes Plan: Most likely community acquired due to strep pneumo. Improving. Day 4/5 of levofloxacin. 09/17/2018. SBP 106-122. T-max 97.3. Pulse 76-84. Respiratory rate 16-22. SPO2 96% on 3 L room air. Weight 56.1 down from 58.4 on admission, in 1262, out 2975, balance -1713 WBC 10.6 Hgb 15.6. Platelets 130 down from 136, 154 on admission. Sodium 138.3. Potassium 4.9. Bicarb 31. Creatinine 0.9.
[2018-09-17 15:59] VITALS: BP 117/82
[2018-09-17] MEDS ORDERED: MIDODRINE HCL 5 MG TABLET PO ONE (18:00)
--- NOTE | 2018-09-17 20:58 | Progress Note ---
Provider Note Provider Note: Cuts cardiology PROGRESS NOTE by Dr. Chandana Richards on 09/17/2018. OBJECTIVE: The patient denies any shortness of breath. There is no chest pain or discomfort. There is no PND or orthopnea. His leg edema is much improved. He denies any palpitations, near-syncope or syncope. He is tolerating his beta-eloina and CHLOE inhibitor well. He states his cough is much improved in fact he has no cough no sputum production. There is no wheezing. There is a problem with getting a bed in [facility]. Hence this is a patient is very restless and wants to go home I initially wrote an order to get the patient to have a LifeVest before he is discharged home and arrangements would be made to see the EP switch box installer in [place] as an outpatient. But in the meantime the patient did get a bed and is being transferred hence the LifeVest order was canceled. Review of the monitor shows that the patient has no atrial or ventricular arrhythmias. PHYSICAL EXAMINATION: The patient is well-built and well-nourished. At present in no acute distress. 09/17/18 15:40 Temperature 97.2 F Temperature Oral Source Pulse Rate 76 Respiratory 16 Rate Blood Pressure 117/82 Blood Pressure 93 Mean BP Location Left Arm BP Position Supine O2 Sat by Pulse 98 Oximetry Oxygen Delivery Room Air Method HEAD: Is atraumatic normocephalic. EYES: Pupils are equal round regular reactive to light accommodation. Extraocular movements are normal. There is no clinical pallor. There is no scleral icterus. EARS: Tympanic membranes are intact. External auditory canals are clear. NOSE: There is no inflammation nasal mucous membranes. There is no deviated nasal septum. MOUTH: Mucous membranes of the mouth are moist tongue is moist there is no ulcers there is no bleeding from the gums. THROAT: There is no redness of the oropharynx there is no exudates. SKIN: There is no skin rashes or skin lesions. There is no petechia or ecchymosis. NECK: Is supple. There is no JVD. Carotids are equal there is no bruit. There is no goiter. There is no lymphadenopathy. There is no accessory muscle respiration in use. Trachea central. LUNGS: There is diminished air entry and prolonged expiration. There is no wheezing or rhonchi. There are no rales of CHF also. On percussion there is hyperresonance. On palpation there is no chest wall tenderness. HEART: S1-S2 is heard. There is no S3 gallop. There is no S4 gallop. There is systolic murmur left sternal border and the apex there is murmur of significant tricuspid regurgitation and mitral regurgitation with the the MR murmur being heard in the apex with radiation to the left axilla. There is no rub. ABDOMEN: Is soft ther e is no hepatosplenomegaly. Bowel sounds are well heard. There is no tender areas of masses. EXTREMITIES: Femorals are slightly diminished. There is no femoral bruits. Leg pulses are diminished. There is 1- pedal edema bilaterally. There is chronic venous stasis dermatitis changes present in the skin. There is no DVT or cellulitis. There is no calf tenderness. There is no cyanosis or clubbing. Capillary refill is normal. 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 PSYCHIATRIC: The patient judgment and insight are intact her affect is normal Patient's 24-hour intake is 1262 mL. Is a 24-hour output is 2975. IMPRESSION/RECOMMENDATION: 1. 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 Unfortunately the patient's blood pressure is on the lower side. He may require midodrine later on. We will see if with the afterload reduction his blood pressure does come up so that doses can be increased. Would change the patient's Lasix to 20 mg IV push every 8 hours[address] aspirin[address] Will place the patient on digoxin 0.25 mg p.o. x1 now and 0.125 mg p.o. daily. 2. Acute exacerbation of COPD: Improving. Continue respiratory treatments. Would recommend using Xopenex instead of albuterol. Continue supplemental oxygen and BiPAP as needed. The patient states that the BiPAP makes him feel better, and he wants to have a BiPAP at home. Hence will talk to the hospitalist and get a pulmonary consult to see if this is feasible. Notes that the patient COPD has improved and is back to baseline. 3. 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 But will wait for the patient's records. 4. Tobacco abuse disorder: Tobacco cessation counseling given. Ill effects of tobacco discussed with the patient in detail. 5. History of shocks per LifeVest in the past in [place].. Would watch the patient's rhythm closely. The patient does not want to wear a LifeVest. If the patient's echo was done more than 3 months ago and did show a reduced ejection fraction of 35% or below, and then would transfer the patient for an AICD, since the patient's at a high risk for sudden . 6. Coronary artery disease: No anginal symptoms. Patient denies prior history of CO. As per his records although actual cardiac catheterization report is not available he states that the patient had a 80% narrowing of the diagonal branch and it is 70% narrowing in the obtuse marginal 1 branch. These were too small in caliber to have percutaneously intervention done. 7. Asymptomatic relative hypotension: If this continues would recommend adding midodrine to bring the blood pressure up, so that his anti-cardiomyopathy gold standard medications can be given in reasonable/therapeutic doses. 8. Severe tricuspid regurgitation, but only mild pulmonary hypertension. 9. Moderate mitral regurgitation. This MR TR is due to annular dilatation of the valves due to dilatation of the left ventricle in the right ventricle. 10.Dyslipidemia with low HDL levels, and a very good LDL and triglyceride levels. Unfortunately I believe the statins will get history of lower. Hence would target increasing the patient's exercise and diet to see if the HDL will come up. Medications reviewed. Management plan discussed with attending physician on the case. Patient will be transferred to [facility] today. We will leave this up to the switch box installer there as to whether the patient needs repeat catheterization, since the catheterization was in March 2018 versus directly go to the placement of an AICD. Medical decision making is of high complexity. 40 minutes spent on this patient with more than 50% of time spent patient care. Will follow the patient as an outpatient.
== END 2018-09-17 20:06 | disposition short-term general hospital (02) | DRG 291 ==
LOC: ER 20:46 → EH 23:39 → 3W 09-12 01:26
PROVIDERS: ADMIT Emergency Medicine; ATTEND Emergency Medicine
PROC: 5A09557 Assistance with Respiratory Ventilation, Greater than 96 Consecutive Hours, Continuous Positive Airway Pressure (ICD-10-PCS; principal; 2018-09-11)
PROC: 3E0F73Z Introduction of Anti-inflammatory into Respiratory Tract, Via Natural or Artificial Opening (ICD-10-PCS; 2018-09-11)
DX: I11.0 Hypertensive heart disease with heart failure (principal); J13 Pneumonia due to Streptococcus pneumoniae; J44.1 Chronic obstructive pulmonary disease with (acute) exacerbation; J44.0 Chronic obstructive pulmonary disease with (acute) lower respiratory infection; I50.23 Acute on chronic systolic (congestive) heart failure; I42.0 Dilated cardiomyopathy; G25.81 Restless legs syndrome; K74.60 Unspecified cirrhosis of liver; I87.2 Venous insufficiency (chronic) (peripheral); I08.1 Rheumatic disorders of both mitral and tricuspid valves; I27.20 Pulmonary hypertension, unspecified; D69.59 Other secondary thrombocytopenia; E78.5 Hyperlipidemia, unspecified; F17.210 Nicotine dependence, cigarettes, uncomplicated; Z79.899 Other long term (current) drug therapy; Z88.0 Allergy status to penicillin; Z82.49 Family history of ischemic heart disease and other diseases of the circulatory system
CPT/HCPCS: 36415; 71045; 76705; 80048; 80053; 80061; 80074; 80162; 82550; 82553; 82803; 83735; 83880; 84439; 84443; 84481; 84484; 85025; 85610; 93005; 93010; 93306; 93976; 94640; 94660; 96374; 96375; 99285; J1644; J1940; J2270; J2920; J2930; J3010; J3490; J7614; J7620